=== PATIENT | female | born 1960 | race Caucasian/White ===

== ENCOUNTER 2019-12-01 12:04 | Observation (INO) | payer MEDICAID ==
[2019-12-01] MEDS ORDERED: Sodium Chloride 0.9% 10 ML Syringe FLUSH PRN (12:20)
[2019-12-01] MEDS ORDERED: Sodium Chloride 0.9% 2.5 ML Syringe FLUSH PRN (12:20)
[2019-12-01] MEDS ORDERED: Ondansetron 4 MG/2 ML SDV IVPUSH ONE ×2 (12:21→13:06)
[2019-12-01] MEDS ORDERED: fentaNYL 50 MCG/ML SDV IVPUSH ONE ×2 (12:21→14:27)
[2019-12-01] MEDS ORDERED: Aspirin 325 MG Tab PO ONE (12:21)
--- NOTE | 2019-12-01 12:28 | EDM.PDOC ---
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 Patient reports a sudden onset of substernal chest pain around 10:30 PM last night while at rest. Pain radiates to the left shoulder and the thoracic back. Nothing makes it better or worse. Described as "dull" and rated as 10 out of 10. She took some antacid medication at home which did not help. Did not take any aspirin. She reports nausea but no emesis, also reports diaphoresis. She reports faithful compliance with her rivaroxaban medication. Denies any hemoptysis, recent surgery or travel or immobilization, history of active cancer, or estrogen or hormone use. ROS: A 10-point review of systems was negative, except as noted in the HPI (or in the ROS section of this note). Past medical history: Reviewed, no additional pertinent history. Surgical history: Reviewed in system, no additional pertinent history. Social history: Reviewed in system, no additional pertinent history. Family history: Reviewed in system, no additional pertinent history. PHYSICAL EXAM Vital signs reviewed. Nursing notes reviewed. Constitutional: Awake, alert, appears uncomfortable. Head: Normocephalic, atraumatic. Eyes: EOMI, conjunctiva normal, no discharge, no scleral icterus. Ears, Nose, Throat: External ears and nose normal, moist oral mucosa. Cardiovascular: 2+ radial pulses bilaterally, 2+ DP pulses bilaterally, capillary refill less than 2 seconds. All 4 extremities are warm and well- perfused. Pulmonary: normal work of breathing, no accessory muscle use. CTA BL. Abdomen/GI: Soft, nontender, nondistended, no guarding or rigidity, no masses. Musculoskeletal: No deformities. Integumentary: Appropriate color for ethnicity, warm, dry, no pallor or jaundice, no rash. Neurologic: Alert, answering questions appropriately, normal speech, no facial droop, moving all extremities well. Psychiatric: Appropriate mood and affect, normal thought process. chest pain Pain Score (Numeric/FACES): 6 - Related Data Allergies Allergy/AdvReac Type Severity Reaction Status Date / Time adhesive Allergy Rash Verified 12/01/19 12:28 meperidine [From Demerol] Allergy Hives Verified 12/01/19 12:28 midazolam [From Versed] Allergy Other Verified 12/01/19 12:28 mushroom Allergy Anaphylactic Verified 12/01/19 12:28 Shock steroids Allergy Hallucinati Uncoded 12/01/19 12:28 ons Home Meds: Home Meds ClonazePAM [KlonoPIN] 1 mg PO TID 12/01/19 [History] EPINEPHrine [Epipen 2-Maykel] 0.3 ml IM ASDIRECTED 12/01/19 [History] Gabapentin [Neurontin] 600 mg PO TID 12/01/19 [History] Morphine 15 mg PO Q4HR 12/01/19 [History] Morphine Sulfate [Morphine Sulfate ER] 30 mg PO BID 12/01/19 [History] Omeprazole Magnesium [Prilosec Otc] 20 mg PO DAILY 12/01/19 [History] Rivaroxaban [Xarelto] 20 mg PO BEDTIME 12/01/19 [History] Topiramate [Topamax] 100 mg PO BID 12/01/19 [History] tiZANidine [Zanaflex] 4 mg PO TID 12/01/19 [History] traZODone HCl [Trazodone HCl] 150 mg PO BEDTIME 12/01/19 [History] Past Medical History Cardiovascular History: Reports: CAD Immunologic History: Reports: SLE - Past Surgical History Other Cardiovascular Surgeries/Procedures: Status post renal artery stent, status post IVC filter placement Musculoskeletal Surgical History: Reports: ORIF Other Musculoskeletal Surgeries/Procedures:: ORIF left lower extremity ED ROS GENERAL - Review of Systems Review Of Systems: See Below ED EXAM, GENERAL - Physical Exam Exam: See Below EKG INTERPRETATION EKG Interpretation Comments: 12-Lead ECG Interpretation Acquired: 12:10 PM Rhythm: Sinus rhythm Rate: 84 bpm [place]: Normal Intervals: Normal Ectopy: None Ischemic Changes: QS complexes in leads III and aVF RV Strain: No obvious RV strain pattern. ST Segments/T-Waves: No notable changes Interpretation: Abnormal ECG, QS complexes noted inferior leads. No prior ECG on file for comparison. Course - Vital Signs Text/Narrative:: Differential diagnosis includes but is not limited to: ACS, pulmonary embolism, aortic dissection, acute systolic heart failure, pneumonia, pneumothorax, pericardial effusion, pleural effusion, pericarditis, endocarditis, esophageal rupture, GERD, drug-induced chest pain, chest wall pain, and many others. Given presenting symptoms, there was concern for thoracic aortic dissection. IV access was established and labs were sent. We obtained a twelve-lead EKG, which shows no acute ischemia. Patient was given full dose aspirin and IV fentanyl and ondansetron. CT angiographic studies of the aorta showed no evidence of aortic dissection or large pulmonary embolism. Labs returned reassuring. Normal cell lines, normal electrolytes. Mild creatinine elevation. Negative troponin with greater than 12 hours of continuous chest pain. HEART score is 5. CRP is mildly elevated at 1.20 but ESR is within normal limits, which argues against a spinal epidural abscess. The patient did experience some transient hypotension which I believe is in response to IV opioid medications. She was given several boluses of crystalloid with improvement of her blood pressure. She required multiple rounds of IV opioids including fentanyl and hydromorphone but continued to have severe midline thoracic back pain. Neurologic examination is difficult as the patient will not fully mobilize her left lower extremity due to severe back pain. She denies any numbness and also denies any bowel or bladder retention or incontinence. She does not have any overt risk factors at this point for a spinal compressive lesion. At this point I have a low suspicion for a compressive process including a spinal epidural abscess, tumor, or spinal hematoma. We obtained CT reconstructions of the thoracic and lumbar spine, with no acute findings and no evidence of a compressive lesion. Given the amount of pain the patient has in her IV opioid pain dedication requirements, she will need to be admitted to the hospital for ongoing symptom control, physical therapy evaluation, and consideration of MRI. I spoke with the hospitalist Dr. Carlson who agrees to admit to observation. HEART Score for Major Cardiac Events RESULT SUMMARY: 5 points Moderate Score (4-6 points) Risk of MACE of 12-16.6%. INPUTS: History > 2 = Highly suspicious EKG > 0 = Normal Age > 1 = 45-64 Risk factors > 2 = ?3 risk factors or history of atherosclerotic disease Initial troponin > 0 = ?normal limit Last Recorded V/S: Last Vital Signs Temp 36.4 C 12/01/19 12:14 Pulse 66 12/01/19 16:18 Resp 14 12/01/19 16:18 BP 90/57 L 12/01/19 16:18 Pulse Ox 99 12/01/19 16:18 - Orders/Labs/Meds Orders: Active Orders 24 hr Category Date Time Status Admission Status [Patient Status] [ADT] Stat ADT 12/01/19 16:41 Active Cardiac Monitoring [RC] . DIRECTED Care 12/01/19 12:20 Active EKG Documentation Completion [RC] STAT Care 12/01/19 12:20 Active Pulse Oximetry [RC] ASDIRECTED Care 12/01/19 12:20 Active Ang Chest [CT] Stat Exams 12/01/19 12:20 Taken Sodium Chloride 0.9% [Saline Flush] Med 12/01/19 12:20 Active 10 ml FLUSH ASDIRECTED PRN Sodium Chloride 0.9% [Saline Flush] Med 12/01/19 12:20 Active 2.5 ml FLUSH ASDIRECTED PRN Saline Lock Insert [OM.PC] Stat Oth 12/01/19 12:20 Ordered Medication Orders Sodium Chloride (Saline Flush) 10 ml FLUSH ASDIRECTED PRN PRN Reason: Keep Vein Open Last Admin: 12/01/19 12:29 Dose: 10 ml Documented by: NICOLE Sodium Chloride (Saline Flush) 2.5 ml FLUSH ASDIRECTED PRN PRN Reason: Keep Vein Open Last Admin: 12/01/19 12:29 Dose: 2.5 ml Documented by: NICOLE Labs: Laboratory Tests 12/01/19 12/01/19 12/01/19 Range/Units 12:17 12:17 12:17 WBC 7.11 (4.0-11.0) K/uL RBC 5.07 (4.30-5.90) M/uL Hgb 15.4 (12.0-16.0) g/dL Hct 45.5 (36.0-46.0) % MCV 89.7 (80.0-98.0) fL MCH 30.4 (27.0-32.0) pg MCHC 33.8 (31.0-37.0) g/dL RDW Std Deviation 42.3 (28.0-62.0) fl RDW Coeff of Peewee 13 (11.0-15.0) % Plt Count 169 (150-400) K/uL MPV 9.60 (7.40-12.00) fL Neut % (Auto) 43.7 L (48.0-80.0) % Lymph % (Auto) 43.7 H (16.0-40.0) % [place] % (Auto) 6.2 (0.0-15.0) % Eos % (Auto) 6.0 (0.0-7.0) % Baso % (Auto) 0.4 (0.0-1.5) % Neut # (Auto) 3.1 (1.4-5.7) K/uL Lymph # (Auto) 3.1 H (0.6-2.4) K/uL [place] # (Auto) 0.4 (0.0-0.8) K/uL Eos # (Auto) 0.4 (0.0-0.7) K/uL Baso # (Auto) 0.0 (0.0-0.1) K/uL ESR 2 (0-29) mm/hr Sodium 138 (136-145) mmol/L Potassium 4.0 (3.5-5.1) mmol/L Chloride 104 (98-107) mmol/L Carbon Dioxide 26.8 (21.0-32.0) mmol/L BUN 12 (7.0-18.0) mg/dL Creatinine 1.1 H (0.6-1.0) mg/dL Est Cr Clr Drug Dosing 44.45 mL/min Estimated GFR (MDRD) 51.2 ml/min Glucose 94 (74-106) mg/dL Calcium 8.7 (8.5-10.1) mg/dL Total Bilirubin 0.1 L (0.2-1.0) mg/dL AST 14 L (15-37) IU/L ALT 13 L (14-63) IU/L Alkaline Phosphatase 99 (46-116) U/L Troponin I < 0.050 (0.000-0.056) ng/mL C-Reactive Protein (0.00-0.90) mg/dL Total Protein 7.5 (6.4-8.2) g/dL Albumin 3.8 (3.4-5.0) g/dL Globulin 3.7 (2.6-4.0) g/dL Albumin/Globulin Ratio 1.0 (0.9-1.6) COVID-19 ([facility]) (NEGATIVE) 12/01/19 12/01/19 Range/Units 12:17 15:20 WBC (4.0-11.0) K/uL RBC (4.30-5.90) M/uL Hgb (12.0-16.0) g/dL Hct (36.0-46.0) % MCV (80.0-98.0) fL MCH (27.0-32.0) pg MCHC (31.0-37.0) g/dL RDW Std Deviation (28.0-62.0) fl RDW Coeff of [place]ee[place] (11.0-15.0) % Plt Count (150-400) K/uL MPV (7.40-12.00) fL Neut % (Auto) (48.0-80.0) % Lymph % (Auto) (16.0-40.0) % [place] % (Auto) (0.0-15.0) % Eos % (Auto) (0.0-7.0) % Baso % (Auto) (0.0-1.5) % Neut # (Auto) (1.4-5.7) K/uL Lymph # (Auto) (0.6-2.4) K/uL [place] # (Auto) (0.0-0.8) K/uL Eos # (Auto) (0.0-0.7) K/uL Baso # (Auto) (0.0-0.1) K/uL ESR (0-29) mm/hr Sodium (136-145) mmol/L Potassium (3.5-5.1) mmol/L Chloride (98-107) mmol/L Carbon Dioxide (21.0-32.0) mmol/L BUN (7.0-18.0) mg/dL Creatinine (0.6-1.0) mg/dL Est Cr Clr Drug Dosing mL/min Estimated GFR (MDRD) ml/min Glucose (74-106) mg/dL Calcium (8.5-10.1) mg/dL Total Bilirubin (0.2-1.0) mg/dL AST (15-37) IU/L ALT (14-63) IU/L Alkaline Phosphatase (46-116) U/L Troponin I (0.000-0.056) ng/mL C-Reactive Protein 1.20 H (0.00-0.90) mg/dL Total Protein (6.4-8.2) g/dL Albumin (3.4-5.0) g/dL Globulin (2.6-4.0) g/dL Albumin/Globulin Ratio (0.9-1.6) COVID-19 ([facility]) NEGATIVE (NEGATIVE) Meds: Medications Generic Name Dose Route Start Last Admin Trade Name Juanis PRN Reason Stop Dose Admin Sodium Chloride 10 ml 12/01/19 12:20 12/01/19 12:29 Saline Flush FLUSH 10 ml ASDIRECTED PRN Administration Keep Vein Open Sodium Chloride 2.5 ml 12/01/19 12:20 12/01/19 12:29 Saline Flush FLUSH 2.5 ml ASDIRECTED PRN Administration Keep Vein Open Discontinued Medications Generic Name Dose Route Start Last Admin Trade Name Frealessia PRN Reason Stop Dose Admin Aspirin 325 mg 12/01/19 12:21 12/01/19 12:31 Aspirin PO 12/01/19 12:22 325 mg ONETIME ONE Administration Fentanyl 50 mcg 12/01/19 12:21 12/01/19 12:28 Fentanyl IVPUSH 12/01/19 12:22 50 mcg ONETIME ONE Administration Fentanyl 50 mcg 12/01/19 14:27 12/01/19 14:47 Fentanyl IVPUSH 12/01/19 14:28 50 mcg ONETIME ONE Administration Hydromorphone HCl 1 mg 12/01/19 13:06 12/01/19 13:15 Dilaudid IVPUSH 12/01/19 13:07 1 mg ONETIME ONE Administration Lactated Ringer's 1,000 mls @ 999 mls/hr 12/01/19 13:36 12/01/19 13:38 Ringers, Lactated IV 12/01/19 14:36 999 mls/hr STAT STA Administration Sodium Chloride 1,000 mls @ 999 mls/hr 12/01/19 15:06 12/01/19 15:13 Normal Saline IV 12/01/19 16:06 999 mls/hr STAT STA Administration Iopamidol 100 ml 12/01/19 13:11 12/01/19 13:11 Isovue Multipack-370 (76%) IVPUSH 12/01/19 13:12 100 ml ONETIME ONE Administration Ondansetron HCl 4 mg 12/01/19 12:21 12/01/19 12:28 Zofran IVPUSH 12/01/19 12:22 4 mg ONETIME ONE Administration Ondansetron HCl 4 mg 12/01/19 13:06 12/01/19 13:13 Zofran IVPUSH 12/01/19 13:07 4 mg ONETIME ONE Administration Departure - Departure Time of Disposition: 15:43 Disposition: Refer to Observation Condition: Good Clinical Impression: Midline thoracic back pain Qualifiers: Chronicity: acute Qualified Code(s): M54.6 - Pain in thoracic spine Referrals: Miguel Angel Hall MD [Primary Care Provider] - Forms: ED Department Discharge Sepsis Event Note (ED) - Evaluation Sepsis Screening Result: No Definite Risk - Focused Exam Vital Signs: Vital Signs Temp Pulse Resp BP Pulse Ox 12/01/19 16:18 66 14 90/57 L 99 12/01/19 15:14 74 14 87/47 L 91 L 12/01/19 14:43 14 102/56 L 95 12/01/19 14:19 71 16 92/61 99 12/01/19 14:04 76 14 88/56 L 93 L 12/01/19 13:35 79 18 86/52 L 96 12/01/19 12:14 36.4 C 87 17 108/78 96 - My Orders Last 24 Hours: My Active Orders 12/01/19 12:20 Cardiac Monitoring [RC] . DIRECTED EKG Documentation Completion [RC] STAT Pulse Oximetry [RC] ASDIRECTED Ang Chest [CT] Stat Sodium Chloride 0.9% [Saline Flush] 10 ml FLUSH ASDIRECTED PRN Sodium Chloride 0.9% [Saline Flush] 2.5 ml FLUSH ASDIRECTED PRN Saline Lock Insert [OM.PC] Stat 12/01/19 16:41 Admission Status [Patient Status] [ADT] Stat - Assessment/Plan Last 24 Hours: My Active Orders 12/01/19 12:20 Cardiac Monitoring [RC] . DIRECTED EKG Documentation Completion [RC] STAT Pulse Oximetry [RC] ASDIRECTED Ang Chest [CT] Stat Sodium Chloride 0.9% [Saline Flush] 10 ml FLUSH ASDIRECTED PRN Sodium Chloride 0.9% [Saline Flush] 2.5 ml FLUSH ASDIRECTED PRN Saline Lock Insert [OM.PC] Stat 12/01/19 16:41 Admission Status [Patient Status] [ADT] Stat
[2019-12-01 12:48] LABS: BLOOD UREA NITROGEN,BUN 12 mg/dL (7.0-18.0); CARBON DIOXIDE,CO2 26.8 mmol/L (21.0-32.0); CHLORIDE,CL 104 mmol/L (98-107); GLUCOSE RANDOM 94 mg/dL (74-106); SODIUM,NA 138 mmol/L (136-145)
[2019-12-01] MEDS ORDERED: HYDROmorphone 1 MG/ML Syringe IVPUSH ONE (13:06)
[2019-12-01] MEDS ORDERED: Iopamidol 755 MG/ML 200 ML Multipack Bottle IVPUSH ONE (13:11)
[2019-12-01] MEDS ORDERED: Lactated Ringers 1,000 ML IV STA (13:36)
[2019-12-01] MEDS ORDERED: Sodium Chloride 0.9% 1,000 ML IV STA (15:06)
--- NOTE | 2019-12-01 15:12 | CT ---
Head CT Technique: Multiple axial sections through the brain were obtained. Intravenous contrast was not utilized. Contrast is noted from prior chest and abdomen CT. Comparison: No prior intracranial imaging is available. Findings: Ventricles along with basal cisterns and sulci over the convexities are within normal limits for the patient's age. No abnormal parenchymal densities are seen. No midline shift or mass effect is appreciated. Bone window settings were reviewed. No acute calvarial finding is seen. Visualized mastoid sinuses are clear. Visualized paranasal sinuses are also clear. Impression: 1. No abnormality is appreciated on head CT study. Diagnostic code #1 This report was dictated in MDT
--- NOTE | 2019-12-01 16:21 | CT ---
CT thoracic spine Technique: Multiple axial sections through the thoracic spine were obtained. Reconstructed coronal and sagittal images were obtained. Comparison: No prior thoracic spine imaging is available. Findings: Diffuse disc space narrowing throughout the thoracic spine in the lower cervical spine is seen. Diffuse anterior osteophytes are seen. Slight posterior osteophytes are noted which are scattered throughout the thoracic spine. No bony central canal stenosis is seen. Mild scoliosis is seen. Mild scattered degenerative apophyseal change is also noted. No fracture is appreciated. No abnormal subluxation is seen. Impression: 1. Diffuse degenerative change as described above. 2. Nothing acute is appreciated on CT study of the thoracic spine. Note: If evaluation for disc herniation is needed, MRI could then be considered. Diagnostic code #2 This report was dictated in MDT
--- NOTE | 2019-12-01 16:37 | CT ---
CT lumbar spine Technique: Multiple axial sections were obtained from above the T10-T11 disc through the L5-S1 disc. Reconstructed coronal and sagittal images were obtained. Comparison: No prior lumbar spine imaging. Findings: Severe disc space narrowing with vacuum phenomena is noted T10-T11, T11-T12 and L5-S1. Mild disc space narrowing is seen throughout other levels of the lumbar spine. Scattered anterior endplate osteophytes are seen as well as scattered apophyseal joint degenerative change. Circumferential disc bulge noted at L2-3 with posterior disc maintaining a concave margin. Minimal circumferential disc bulge at L3-L4 with posterior disc maintaining a concave margin. Slight posterior disc bulge and posterior spurring is noted at L4-L5 which causes mild central canal stenosis. Minimal amount of epidural air compatible with annular rupture noted at L5-S1. Minimal posterior disc bulge is seen. Moderate left-sided neural foraminal stenosis is noted at L5-S1. Other neural foramina are felt to be fairly well patent where the nerve roots exit. No acute fracture or abnormal subluxation is seen. Impression: 1. Degenerative change as described above. 2. Left-sided neural foraminal stenosis at L5-S1. 3. Mild central canal stenosis noted at L4-L5. Diagnostic code #3 This report was dictated in MDT
[2019-12-01] MEDS ORDERED: Lactated Ringers 1,000 ML IV ONE (16:48)
[2019-12-01] MEDS ORDERED: Albuterol/Ipratropium 3.0-0.5 MG/3 ML Neb Soln NEB PRN (16:53)
[2019-12-01] MEDS ORDERED: Ondansetron 4 MG/2 ML SDV IVPUSH PRN (16:53)
[2019-12-01] MEDS ORDERED: Acetaminophen/oxyCODONE 325-5 MG Tab PO SCH (17:00)
[2019-12-01] MEDS ORDERED: Lactated Ringers 1,000 ML IV SCH (17:30)
[2019-12-01] MEDS: Morphine 10 MG/ML Syringe IVPUSH PRN (20:46)
--- NOTE | 2019-12-01 22:03 | PCM.HP.2 ---
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 Patient reports a sudden onset of substernal chest pain around 10:30 PM last night while at rest, she states the pain started when she was eating/drinking. Pain radiates to the left shoulder and the thoracic back. She took maalox at home which did not help. Did not take any aspirin. She reports nausea but no emesis, also reports diaphoresis. Denies any hemoptysis, recent surgery or travel or immobilization, history of active cancer, or estrogen or hormone use. CT arotagram was negative for dissection, CT head, and spine showed severe d egenerative changes, Patient received IV fentanyl, her BP was low and she was quite somnolent in ER post fentanyl. She was admitted for observation. During my encounter patient had a sip of cold water and had another episode of the pain which resolved after few minutes. EKG was done which showed NSR, troponin*2 have been negative. Patient states her BP is always soft as low as SBP 70-80 and its "normal for her". She is keen to go back home. chest pain Pain Score (Numeric/FACES): 6 - Related Data Allergies/Adverse Reactions: Allergies Allergy/AdvReac Type Severity Reaction Status Date / Time adhesive Allergy Rash Verified 12/01/19 17:55 meperidine [From Demerol] Allergy Hives Verified 12/01/19 17:55 midazolam [From Versed] Allergy Other Verified 12/01/19 17:55 mushroom Allergy Anaphylactic Verified 12/01/19 17:55 Shock steroids Allergy Hallucinati Uncoded 12/01/19 17:55 ons Home Medications: Home Meds ClonazePAM [KlonoPIN] 1 mg PO TID 12/01/19 [History] EPINEPHrine [Epipen 2-Maykel] 0.3 ml IM ASDIRECTED 12/01/19 [History] Gabapentin [Neurontin] 600 mg PO TID 12/01/19 [History] Morphine 15 mg PO Q4HR 12/01/19 [History] Morphine Sulfate [Morphine Sulfate ER] 30 mg PO BID 12/01/19 [History] Omeprazole Magnesium [Prilosec Otc] 20 mg PO DAILY 12/01/19 [History] Rivaroxaban [Xarelto] 20 mg PO BEDTIME 12/01/19 [History] Topiramate [Topamax] 100 mg PO BID 12/01/19 [History] tiZANidine [Zanaflex] 4 mg PO TID 12/01/19 [History] traZODone HCl [Trazodone HCl] 150 mg PO BEDTIME 12/01/19 [History] Past Medical History Cardiovascular History: Reports: CAD Respiratory History: Reports: COPD, PE Musculoskeletal History: Reports: Arthritis, Back Pain, Chronic, Fibromyalgia, Osteoarthritis, RA Neurological History: Reports: Other (See Below) Other Neuro History: stroke Psychiatric History: Reports: Anxiety, Depression Hematologic History: Reports: Other (See Below) Other Hematologic History: coagulation disorder. hx of DVT's Immunologic History: Reports: SLE Oncologic (Cancer) History: Reports: Cervix - Infectious Disease History Infectious Disease History: Reports: Chicken Pox, Measles - Past Surgical History Other Cardiovascular Surgeries/Procedures: Status post renal artery stent, status post IVC filter placement Musculoskeletal Surgical History: Reports: ORIF Other Musculoskeletal Surgeries/Procedures:: ORIF left lower extremity Social & Family History - Family History Family Medical History: Noncontributory - Tobacco Use Smoking Status *Q: Current Every Day Smoker Years of Tobacco use: 50 Packs/Tins Daily: 1 Tobacco Use Comment: unable to obtain - Caffeine Use Caffeine Use: Reports: Coffee Caffeine Use Comment: unable to obtain - Recreational Drug Use Recreational Drug Use: No H&P Review of Systems - Review of Systems: Review Of Systems: See Below General: Denies: Fever, Chills, Malaise HEENT: Denies: Dysphasia, Ear Pain Pulmonary: Reports: Shortness of Breath. Denies: Wheezing, Pleuritic Chest Pain Cardiovascular: Reports: Chest Pain. Denies: Palpitations, Dyspnea on Exertion, Orthopnea, Lightheadedness, Syncope Gastrointestinal: Reports: Nausea. Denies: Abdominal Pain, Anorexia, Black Stool, Bloody Stool, Melena, Mucous in Stool, Vomiting Genitourinary: Denies: Burning, Pain, Urgency Musculoskeletal: Denies: Shoulder Pain, Arm Pain Skin: Denies: Jaundice, Mottled, Pallor Psychiatric: Denies: Confusion, Agitation, Cravings, Hallucinations (Visual) Neurological: Reports: Numbness, Pre-Existing Deficit, Tingling (chronic) Exam - Exam Exam: See Below - Vital Signs Vital Signs: Last Vital Signs Temp 36.4 C 12/01/19 17:23 Pulse 65 12/01/19 17:23 Resp 14 12/01/19 17:23 BP 97/53 L 12/01/19 17: Pulse Ox 100 12/01/19 17:25 Weight: 49.895 kg - Exam Quality Assessment: Supplemental Oxygen General: Alert, Oriented Neck: Supple, Trachea Midline Lungs: Clear to Auscultation, Normal Respiratory Effort Cardiovascular: Regular Rate, Regular Rhythm GI/Abdominal Exam: Normal Bowel Sounds, Soft, Tender (epigastric) Skin: Warm Neurological: Cranial Nerves Intact, Normal Speech, Normal Tone, Sensation Intact Neuro Extensive - Motor, Sensory, Reflexes: CN II-XII Intact - Patient Data Lab Results Last 24 hrs: Laboratory Results - last 24 hr 12/01/19 12/01/19 12/01/19 Range/Units 12:17 12:17 12:17 WBC 7.11 (4.0-11.0) K/uL RBC 5.07 (4.30-5.90) M/uL Hgb 15.4 (12.0-16.0) g/dL Hct 45.5 (36.0-46.0) % MCV 89.7 (80.0-98.0) fL MCH 30.4 (27.0-32.0) pg MCHC 33.8 (31.0-37.0) g/dL RDW Std Deviation 42.3 (28.0-62.0) fl RDW Coeff of Peewee 13 (11.0-15.0) % Plt Count 169 (150-400) K/uL MPV 9.60 (7.40-12.00) fL Neut % (Auto) 43.7 L (48.0-80.0) % Lymph % (Auto) 43.7 H (16.0-40.0) % Grundy % (Auto) 6.2 (0.0-15.0) % Eos % (Auto) 6.0 (0.0-7.0) % Baso % (Auto) 0.4 (0.0-1.5) % Neut # (Auto) 3.1 (1.4-5.7) K/uL Lymph # (Auto) 3.1 H (0.6-2.4) K/uL Grundy # (Auto) 0.4 (0.0-0.8) K/uL Eos # (Auto) 0.4 (0.0-0.7) K/uL Baso # (Auto) 0.0 (0.0-0.1) K/uL ESR 2 (0-29) mm/hr Sodium 138 (136-145) mmol/L Potassium 4.0 (3.5-5.1) mmol/L Chloride 104 (98-107) mmol/L Carbon Dioxide 26.8 (21.0-32.0) mmol/L BUN 12 (7.0-18.0) mg/dL Creatinine 1.1 H (0.6-1.0) mg/dL Est Cr Clr Drug Dosing 44.45 mL/min Estimated GFR (MDRD) 51.2 ml/min Glucose 94 (74-106) mg/dL Calcium 8.7 (8.5-10.1) mg/dL Total Bilirubin 0.1 L (0.2-1.0) mg/dL AST 14 L (15-37) IU/L ALT 13 L (14-63) IU/L Alkaline Phosphatase 99 (46-116) U/L Troponin I < 0.050 (0.000-0.056) ng/mL C-Reactive Protein (0.00-0.90) mg/dL Total Protein 7.5 (6.4-8.2) g/dL Albumin 3.8 (3.4-5.0) g/dL Globulin 3.7 (2.6-4.0) g/dL Albumin/Globulin Ratio 1.0 (0.9-1.6) COVID-19 (LAINE) (NEGATIVE) 12/01/19 12/01/19 12/01/19 Range/Units 12:17 15:20 20:41 WBC (4.0-11.0) K/uL RBC (4.30-5.90) M/uL Hgb (12.0-16.0) g/dL Hct (36.0-46.0) % MCV (80.0-98.0) fL MCH (27.0-32.0) pg MCHC (31.0-37.0) g/dL RDW Std Deviation (28.0-62.0) fl RDW Coeff of Peewee (11.0-15.0) % Plt Count (150-400) K/uL MPV (7.40-12.00) fL Neut % (Auto) (48.0-80.0) % Lymph % (Auto) (16.0-40.0) % Grundy % (Auto) (0.0-15.0) % Eos % (Auto) (0.0-7.0) % Baso % (Auto) (0.0-1.5) % Neut # (Auto) (1.4-5.7) K/uL Lymph # (Auto) (0.6-2.4) K/uL Grundy # (Auto) (0.0-0.8) K/uL Eos # (Auto) (0.0-0.7) K/uL Baso # (Auto) (0.0-0.1) K/uL ESR (0-29) mm/hr Sodium (136-145) mmol/L Potassium (3.5-5.1) mmol/L Chloride (98-107) mmol/L Carbon Dioxide (21.0-32.0) mmol/L BUN (7.0-18.0) mg/dL Creatinine (0.6-1.0) mg/dL Est Cr Clr Drug Dosing mL/min Estimated GFR (MDRD) ml/min Glucose (74-106) mg/dL Calcium (8.5-10.1) mg/dL Total Bilirubin (0.2-1.0) mg/dL AST (15-37) IU/L ALT (14-63) IU/L Alkaline Phosphatase (46-116) U/L Troponin I < 0.050 (0.000-0.056) ng/mL C-Reactive Protein 1.20 H (0.00-0.90) mg/dL Total Protein (6.4-8.2) g/dL Albumin (3.4-5.0) g/dL Globulin (2.6-4.0) g/dL Albumin/Globulin Ratio (0.9-1.6) COVID-19 (LAINE) NEGATIVE (NEGATIVE) Result Diagrams: 12/01/19 12:17 12/01/19 12:17 Sepsis Event Note - Evaluation Sepsis Screening Result: No Definite Risk - Focused Exam Vital Signs: Vital Signs Temp Pulse Resp BP Pulse Ox Pulse Ox 12/01/19 17:25 100 12/01/19 17:23 36.4 C 65 14 97/53 L 100 12/01/19 16:46 65 14 88/55 L 98 12/01/19 16:18 66 14 90/57 L 99 12/01/19 15:14 74 14 87/47 L 91 L 12/01/19 14:43 14 102/56 L 95 12/01/19 14:19 71 16 92/61 99 12/01/19 14:04 76 14 88/56 L 93 L 12/01/19 13:35 79 18 86/52 L 96 12/01/19 12:14 36.4 C 87 17 108/78 96 Date Exam was Performed: 12/01/19 Time Exam was Performed: 23:58 - Problem List (1) Chest pain SNOMED Code(s): 39650523 ICD Code: R07.9 - CHEST PAIN, UNSPECIFIED Status: Acute Current Visit: Yes (2) Chronic pain SNOMED Code(s): 84925428 ICD Code: G89.29 - OTHER CHRONIC PAIN Status: Acute Current Visit: Yes (3) Chronic leg pain SNOMED Code(s): 65792441 ICD Code: M79.606 - PAIN IN LEG, UNSPECIFIED; G89.29 - OTHER CHRONIC PAIN Status: Acute Current Visit: Yes (4) Midline thoracic back pain SNOMED Code(s): 686250650 ICD Code: M54.6 - PAIN IN THORACIC SPINE Status: Acute Current Visit: Yes Qualifiers: Chronicity: acute Qualified Code(s): M54.6 - Pain in thoracic spine Problem List Initiated/Reviewed/Updated: Yes Orders Last 24hrs: Active Orders 24 hr Category Date Time Status Admission Status [Patient Status] [ADT] Stat ADT 12/01/19 16:41 Active Ambulate [RC] ASDIRECTED Care 12/01/19 16:48 Active Antiembolic Devices [RC] PER UNIT ROUTINE Care 12/01/19 16:51 Active Cardiac Monitoring [RC] . DIRECTED Care 12/01/19 12:20 Active Oxygen Therapy [RC] PRN Care 12/01/19 16:48 Active Pulse Oximetry [RC] ASDIRECTED Care 12/01/19 12:20 Active RT Aerosol Therapy [RC] ASDIRECTED Care 12/01/19 16:54 Active Telemetry Monitoring [Cardiac Monitoring] [RC] Q8H Care 12/01/19 17:05 Active VTE/DVT Education [RC] DAILY Care 12/01/19 16:48 Active Vital Signs [RC] Q4H Care 12/01/19 16:48 Active Consult to Physical Therapy [PT Evaluation and Cons 12/01/19 20:29 Active Treatment] [CONS] Routine Clear Liquid Diet [DIET] Diet 12/01/19 Dinner Active Regular Diet [DIET] Diet 12/02/19 Breakfast Active Ang Chest [CT] Stat Exams 12/01/19 12:20 Taken TROPONIN I [CHEM] Q3H Lab 12/01/19 23:28 Ordered Acetaminophen/oxyCODONE [Percocet 325-5 MG] Med 12/01/19 17:00 Active 1 tab PO Q6H Albuterol/Ipratropium [DuoNeb 3.0-0.5 MG/3 ML] Med 12/01/19 16:53 Active 3 ml NEB Q4HRRT PRN Lactated Ringers [Ringers, Lactated] 1,000 ml Med 12/01/19 17:30 Active IV ASDIRECTED Morphine Med 12/01/19 20:00 Active 2 mg IVPUSH Q4H PRN Ondansetron [Zofran] Med 12/01/19 16:53 Active 4 mg IVPUSH Q4H PRN Sodium Chloride 0.9% [Saline Flush] Med 12/01/19 12:20 Active 10 ml FLUSH ASDIRECTED PRN Sodium Chloride 0.9% [Saline Flush] Med 12/01/19 12:20 Active 2.5 ml FLUSH ASDIRECTED PRN Saline Lock Insert [OM.PC] Stat Oth 12/01/19 12:20 Ordered Sequential Compression Device [OM.PC] Per Unit Routine Oth 12/01/19 16:50 Ordered Medication Orders Albuterol/Ipratropium (Duoneb 3.0-0.5 Mg/3 Ml) 3 ml NEB Q4HRRT PRN PRN Reason: Shortness Of Breath/wheezing Lactated Ringer's (Ringers, Lactated) 1,000 mls @ 125 mls/hr IV ASDIRECTED [facility] Last Admin: 12/01/19 18:57 Dose: 125 mls/hr Documented by: ARISTEO Morphine Sulfate (Morphine) 2 mg IVPUSH Q4H PRN PRN Reason: Pain (severe 7-10) Stop: 12/04/19 16:53 Last Admin: 12/01/19 20:46 Dose: 2 mg Documented by: SHIRLEY Ondansetron HCl (Zofran) 4 mg IVPUSH Q4H PRN PRN Reason: Nausea/Vomiting Oxycodone/Acetaminophen (Percocet 325-5 Mg) 1 tab PO Q6H [facility] Last Admin: 12/01/19 17:49 Dose: Not Given Documented by: JACLYN Sodium Chloride (Saline Flush) 10 ml FLUSH ASDIRECTED PRN PRN Reason: Keep Vein Open Last Admin: 12/01/19 12:29 Dose: 10 ml Documented by: NICOLE Sodium Chloride (Saline Flush) 2.5 ml FLUSH ASDIRECTED PRN PRN Reason: Keep Vein Open Last Admin: 12/01/19 12:29 Dose: 2.5 ml Documented by: NICOLE Assessment/Plan Comment:: 59 y/o F admitted for chest pain, radiating to back, Dissection ruled out, EKG noted cont tele trend troponin Pain looks be esophageal vs gastric in origin, it got worse upon drinking water IV PPI and IV Benadryl now one time cont home meds, hold other pain meds tonight IV fluids start IV morphine as needed tonight, will switched to her home meds in AM PT evaluation for frequent falls
[2019-12-01] MEDS ORDERED: Rivaroxaban 10 MG Tab PO SCH (22:09)
[2019-12-01] MEDS ORDERED: diphenhydrAMINE 50 MG/ML SDV IVPUSH ONE (22:41)
[2019-12-01] MEDS ORDERED: Pantoprazole 40 MG in Sodium Chloride 0.9% 10 ML IV ONE (22:43)
[2019-12-01] MEDS ORDERED: Aluminum Hydroxide/Magnesium Hydroxide/Simethicone Susp 30 ML Cup PO PRN (22:50)
[2019-12-02] MEDS: Morphine 10 MG/ML Syringe IVPUSH PRN (01:20)
[2019-12-02] MEDS ORDERED: tiZANidine 4 MG Tab PO SCH ×2 (02:30→06:00)
[2019-12-02] MEDS ORDERED: ClonazePAM 1 MG Tab PO SCH ×2 (02:30→06:00)
[2019-12-02] MEDS ORDERED: Omeprazole 20 MG Cap.CR PO SCH (07:30)
[2019-12-02] MEDS ORDERED: Topiramate 100 MG Tab PO SCH (09:00)
--- NOTE | 2019-12-02 09:45 | CT ---
EXAM DATE: 12/01/19 PATIENT'S AGE: 59 CT chest and abdomen Technique: Multiple axial sections were obtained from above the lung apices inferiorly through the chest and abdomen to below the iliac crest. Intravenous contrast was utilized. Study has been performed as an aortogram exam. Reconstructed coronal and sagittal images were reviewed. Comparison: No prior chest or abdominal CT exam. Findings: Thoracic aorta is well opacified. No evidence of dissection is noted. Visualized pulmonary arteries show no filling defects to indicate larger pulmonary embolism. Mediastinum and hilar regions show no adenopathy or mass. Axillary regions show no adenopathy. Slight scattered areas of increased density within the right chest most likely representing scattered areas of scarring. I see nothing to indicate an acute parenchymal process. Bone window settings of the chest show diffuse degenerative change throughout the visualized lower cervical spine and thoracic spine. No acute abnormality is appreciated within the visualized osseous structures. Liver shows no focal abnormality. Spleen appears within normal limits. Adrenal glands show no nodule. Pancreas shows no discrete abnormality. Kidneys show symmetric contrast enhancement without hydronephrosis. No discrete mass is appreciated. No retroperitoneal adenopathy is seen. Inferior vena cava filter is seen. No mesenteric abnormalities are seen. Aorta shows atherosclerotic change. No aneurysm is seen. No dissection is seen. Both renal arteries show no focal stenosis. Celiac artery and mesenteric artery show no stenosis. Bone window settings of the abdomen were reviewed. Mild degenerative change is noted within the spine most severe at L5-S1. Impression: 1. No evidence of thoracic or abdominal aortic aneurysm or dissection. Atherosclerotic change is seen within the abdominal aorta. 2. Scattered areas of scarring are felt to be present within the right lung. 3. Nothing acute is seen within the chest. 4. Nothing acute is seen within the abdomen. Diagnostic code #2 This report was dictated in MDT Report Signed by Proxy. [facility]
[2019-12-02] MEDS ORDERED: Non-Formulary Medication 1 Each (Rivaroxaban [Xarelto] 20 MG) PO SCH (21:00)
== END 2019-12-02 02:40 | disposition left against medical advice (07) ==
LOC: MW.ED 12:04 → MW.MS 16:41
PROVIDERS: ADMIT Student in an Organized Health Care Education/Training Program; ATTEND Student in an Organized Health Care Education/Training Program
DX: R07.2 Precordial pain (principal); G89.29 Other chronic pain; M79.606 Pain in leg, unspecified; M54.6 Pain in thoracic spine; D68.61 Antiphospholipid syndrome; I25.10 Atherosclerotic heart disease of native coronary artery without angina pectoris; J44.9 Chronic obstructive pulmonary disease, unspecified; F41.9 Anxiety disorder, unspecified; F32.9 Major depressive disorder, single episode, unspecified; M32.9 Systemic lupus erythematosus, unspecified; F17.210 Nicotine dependence, cigarettes, uncomplicated; Z20.828 Contact with and (suspected) exposure to other viral communicable diseases; Z88.5 Allergy status to narcotic agent; Z88.8 Allergy status to other drugs, medicaments and biological substances; Z79.899 Other long term (current) drug therapy; Z86.711 Personal history of pulmonary embolism; Z86.718 Personal history of other venous thrombosis and embolism; Z96.0 Presence of urogenital implants; Z95.828 Presence of other vascular implants and grafts; Z98.890 Other specified postprocedural states
CPT/HCPCS: 36415; 70450; 71275; 72128; 72131; 74175; 80053; 84484; 85025; 85652; 86140; 87635; 93005; 96374; 96375; 96376; 99285; A9270; C9113; G0378; J1170; J1200; J2270; J2405; J3010; J7030; J7050; J7120; Q9967; U0002

== ENCOUNTER 2020-07-11 20:24 | Emergency (ER) | payer MEDICAID ==
--- NOTE | 2020-07-11 21:41 | EDM.PDOC ---
<Shantel Jackson R - Last Filed: 07/11/20 21:34> ED HPI GENERAL MEDICAL PROBLEM - General Chief Complaint: Upper Extremity Injury/Pain Stated Complaint: RT HAND INJURY FROM FALL YESTERDAY Time Seen by Provider: 07/11/20 21:14 Source of Information: Reports: Patient History Limitations: Reports: No Limitations - History of Present Illness INITIAL COMMENTS - FREE TEXT/NARRATIVE: Presents reporting right forearm and shoulder pain. States that last night tangled up in a dog leash, fell backwards onto her buttocks and broke her fall with her outstretched arms. She felt a pop in her right forearm. Since then she has had pain in her right hand and right shoulder. right wrist and hand Pain Score (Numeric/FACES): 5 - Related Data Allergies Allergy/AdvReac Type Severity Reaction Status Date / Time adhesive Allergy Rash Verified 07/11/20 21:24 meperidine [From Demerol] Allergy Hives Verified 07/11/20 21:24 midazolam [From Versed] Allergy Other Verified 07/11/20 21:24 mushroom Allergy Anaphylactic Verified 07/11/20 21:24 Shock steroids Allergy Hallucinati Uncoded 07/11/20 21:24 ons Home Meds: Home Meds ClonazePAM [KlonoPIN] 1 mg PO TID 12/01/19 [History] EPINEPHrine [Epipen 2-Maykel] 0.3 ml IM ASDIRECTED 12/01/19 [History] Gabapentin [Neurontin] 600 mg PO TID 12/01/19 [History] Morphine 15 mg PO Q4HR 12/01/19 [History] Morphine Sulfate [Morphine Sulfate ER] 30 mg PO BID 12/01/19 [History] Omeprazole Magnesium [Prilosec Otc] 20 mg PO DAILY 12/01/19 [History] Rivaroxaban [Xarelto] 20 mg PO BEDTIME 12/01/19 [History] Topiramate [Topamax] 100 mg PO BID 12/01/19 [History] tiZANidine [Zanaflex] 4 mg PO TID 12/01/19 [History] traZODone HCl [Trazodone HCl] 150 mg PO BEDTIME 12/01/19 [History] Vitamins B1,B2,B3,B5,and B6 [B-Complex Injection Vial] 30 ml IJ ASDIRECTED 07/11/20 [History] Past Medical History Cardiovascular History: Reports: CAD Respiratory History: Reports: COPD, PE Musculoskeletal History: Reports: Arthritis, Back Pain, Chronic, Fibromyalgia, Osteoarthritis, RA Neurological History: Reports: Other (See Below) Other Neuro History: stroke Psychiatric History: Reports: Anxiety, Depression Hematologic History: Reports: Other (See Below) Other Hematologic History: coagulation disorder. hx of DVT's Immunologic History: Reports: SLE Oncologic (Cancer) History: Reports: Cervix - Infectious Disease History Infectious Disease History: Reports: Chicken Pox, Measles - Past Surgical History Other Cardiovascular Surgeries/Procedures: Status post renal artery stent, status post IVC filter placement Respiratory Surgical History: Reports: Lung Resection Other Respiratory Surgeries/Procedures: right lung GI Surgical History: Reports: Appendectomy, Cholecystectomy, Colonoscopy, EGD, Hernia, Abdominal Female Surgical History: Reports: Section, Tubal Ligation Other Female Surgeries/Procedures: uteran ablation Musculoskeletal Surgical History: Reports: ORIF Other Musculoskeletal Surgeries/Procedures:: ORIF left lower extremity Social & Family History - Family History Family Medical History: No Pertinent Family History - Tobacco Use Packs/Tins Daily: 1 - Caffeine Use Caffeine Use: Reports: None Caffeine Use Comment: unable to obtain - Recreational Drug Use Recreational Drug Use: Yes Recreational Drug Type: Reports: Marijuana/Hashish ED EXAM, GENERAL - Physical Exam Exam: See Below Exam Limited By: No Limitations General Appearance: Alert, No Apparent Distress Ears: Normal External Exam Nose: Normal Inspection Throat/Mouth: Normal Inspection Head: Atraumatic, Normocephalic Neck: Normal Inspection Respiratory/Chest: No Respiratory Distress, Lungs Clear, Normal Breath Sounds Cardiovascular: Normal Peripheral Pulses, Regular Rate, Rhythm, No Murmur GI/Abdominal: Soft Back Exam: Normal Inspection Extremities: Normal Inspection, Limited Range of Motion (wrist and digits limited by pain. Of note, the patient untied her bath robe and did not complain of pain or have any difficulty with the process.), Other (Right shoulder without deformity, swelling, erythema, ecchymosis. Motion limited by pain to 90 degrees of flexion and 90 degrees of abduction. Right elbow without tenderness erythema, swelling and full range of motion without hesitation or limitation. Right wrist no swelling, deformity, range of ) Neurological: Alert, Oriented Psychiatric: Normal Affect, Normal Mood Skin Exam: Warm, Dry, Intact, Normal Color, No Rash Lymphatic: No Adenopathy Departure - Departure Disposition: Home, Self-Care Clinical Impression: Nondisplaced fracture of right scaphoid bone - Discharge Information Instructions: Wrist Fracture Treated With Immobilization, [id number] Referrals: Miguel Angel Hall MD [Primary Care Provider] - Forms: ED Department Discharge Additional Instructions: [facility] - [facility] [address], [address] [place] [address] The following information is given to patients seen in the emergency department who are being discharged to home. This information is to outline your options for follow-up care. We provide all patients seen in our emergency department with a follow-up referral. The need for follow-up, as well as the timing and circumstances, are variable depending upon the specifics of your emergency department visit. If you don't have a primary care physician on staff, we will provide you with a referral. We always advise you to contact your personal physician following an emergency department visit to inform them of the circumstance of the visit and for follow-up with them and/or the need for any referrals to a consulting specialist. The emergency department will also refer you to a specialist when appropriate. This referral assures that you have the opportunity for follow-up care with a specialist. All of these measure are taken in an effort to provide you with optimal care, which includes your follow-up. Under all circumstances we always encourage you to contact your private physic christina who remains a resource for coordinating your care. When calling for follow- up care, please make the office aware that this follow-up is from your recent emergency room visit. If for any reason you are refused follow-up, please contact the [facility] Emergency Department at and asked to speak to the emergency department charge nurse. Gnosis was made by clinical exam. X-ray did not verify it but scaphoid fracture can be invisible on the x-ray and her exam is convincing. Sepsis Event Note (ED) - Evaluation Sepsis Screening Result: No Definite Risk <Destin Chavez - Last Filed: 07/11/20 23:29> Review of Systems - Review of Systems Review Of Systems: Comprehensive ROS is negative, except as noted in HPI. ED EXAM, GENERAL - Physical Exam Free Text/Narrative:: Physical exam is in the HPI Course - Vital Signs Text/Narrative:: X-rays negative of the wrist and shoulder. Tenderness and swelling is at the anatomic snuffbox of the right wrist. Diagnosis scaphoid fracture by exam Last Recorded V/S: Last Vital Signs Temp 36.4 C 07/11/20 21:16 Pulse 74 07/11/20 21:16 Resp 18 07/11/20 21:16 BP 99/71 07/11/20 21:16 Pulse Ox 94 L 07/11/20 21:16 - Orders/Labs/Meds Orders: Active Orders 24 hr Category Date Time Status Shoulder Comp Rt [CR] Stat Exams 07/11/20 21:56 Taken Wrist Comp Min 3V Rt [CR] Stat Exams 07/11/20 21:55 Taken DME for Discharge [COMM] Stat Oth 07/11/20 23:26 Ordered Departure - Departure Time of Disposition: 23:28 Condition: Good Sepsis Event Note (ED) - Focused Exam Vital Signs: Vital Signs Temp Pulse Resp BP Pulse Ox 07/11/20 21:16 36.4 C 74 18 99/71 94 L - My Orders Last 24 Hours: My Active Orders 07/11/20 21:55 Wrist Comp Min 3V Rt [CR] Stat 07/11/20 21:56 Shoulder Comp Rt [CR] Stat 07/11/20 23:26 DME for Discharge [COMM] Stat - Assessment/Plan Last 24 Hours: My Active Orders 07/11/20 21:55 Wrist Comp Min 3V Rt [CR] Stat 07/11/20 21:56 Shoulder Comp Rt [CR] Stat 07/11/20 23:26 DME for Discharge [COMM] Stat
--- NOTE | 2020-07-11 23:47 | CR ---
INDICATION: Trauma. COMPARISON: None. TECHNIQUE: Three views of the right wrist. FINDINGS: Normal mineralization and alignment. No acute fracture or dislocation. Soft tissues are unremarkable. IMPRESSION: Negative right wrist series. Dictated by James Love MD @ 07/11/2020 11:46:58 PM Dictated by: James Love MD @ 07/11/2020 23:47:05 (Electronically Signed)
--- NOTE | 2020-07-11 23:49 | CR ---
Indication: Injury Technique: Three views of the right shoulder Comparison: None available Findings/Impression: Bones: No acute fracture seen. No dislocation. Joint spaces: Unremarkable. Soft tissues: Unremarkable. Dictated by Daniel Barragan MD @ Jul 11 2020 11:47PM Signed by Dr. Danile Barragan @ Jul 11 2020 11:49PM
== END 2020-07-12 00:10 | disposition home or self-care (01) ==
LOC: MW.ED 20:24
DX: S62.001A Unspecified fracture of navicular [scaphoid] bone of right wrist, initial encounter for closed fracture (principal); I25.10 Atherosclerotic heart disease of native coronary artery without angina pectoris; J44.9 Chronic obstructive pulmonary disease, unspecified; Z86.711 Personal history of pulmonary embolism; Z86.718 Personal history of other venous thrombosis and embolism; Z91.048 Other nonmedicinal substance allergy status; Z88.8 Allergy status to other drugs, medicaments and biological substances; Z91.018 Allergy to other foods; Z88.4 Allergy status to anesthetic agent; Z79.01 Long term (current) use of anticoagulants; Z79.899 Other long term (current) drug therapy; W18.30XA Fall on same level, unspecified, initial encounter; Y93.01 Activity, walking, marching and hiking
CPT/HCPCS: 29125; 73030-26-RT; 73030-RT; 73110-26-RT; 73110-RT; 99283; 99283-25

== ENCOUNTER 2021-12-25 09:35 | Emergency (ER) | payer MEDICAID ==
[2021-12-25] MEDS ORDERED: Sodium Chloride 0.9% 1,000 ML IV ONE (09:51)
[2021-12-25] MEDS ORDERED: Albuterol/Ipratropium 3.0-0.5 MG/3 ML Neb Soln NEB ONE (10:17)
[2021-12-25 10:35] LABS: BLOOD UREA NITROGEN,BUN 18 mg/dL (7.0-18.0); CARBON DIOXIDE,CO2 33.6 mmol/L (21.0-32.0); CHLORIDE,CL 96 mmol/L (98-107); GLUCOSE RANDOM 166 mg/dL (74-106); SODIUM,NA 135 mmol/L (136-145)
[2021-12-25 10:38] LABS: ESTIMATED GFR 43 mL/min (>60)
[2021-12-25] MEDS ORDERED: cefTRIAXone 1 GM in Sodium Chloride 0.9% 50 ML IV ONE (11:11)
[2021-12-25] MEDS ORDERED: Aspirin 81 MG Tab.Chew PO ONE (12:18)
[2021-12-25] MEDS ORDERED: Clopidogrel 75 MG Tab PO ONE (12:19)
== END 2021-12-25 13:21 ==
LOC: MW.ED 09:35
DX: I21.4 Non-ST elevation (NSTEMI) myocardial infarction (principal); J44.9 Chronic obstructive pulmonary disease, unspecified; I25.10 Atherosclerotic heart disease of native coronary artery without angina pectoris; M19.90 Unspecified osteoarthritis, unspecified site; Z79.01 Long term (current) use of anticoagulants; Z20.822 Contact with and (suspected) exposure to COVID-19; Z91.048 Other nonmedicinal substance allergy status; Z91.018 Allergy to other foods; Z88.5 Allergy status to narcotic agent
CPT/HCPCS: 36415; 71045; 80053; 80307; 82803; 84443; 84484; 85025; 87040; 87635; 93005; 94660; 96361; 96374; 99285; A9270; J0696; J7030; J7620-GY; U0002

== ENCOUNTER 2022-05-23 20:40 | Observation (INO) | payer MEDICAID ==
[2022-05-23] MEDS ORDERED: Sodium Chloride 0.9% 10 ML Syringe FLUSH PRN (20:47)
[2022-05-23] MEDS ORDERED: Sodium Chloride 0.9% 2.5 ML Syringe FLUSH PRN (20:47)
[2022-05-23] MEDS ORDERED: Lactated Ringers 1,000 ML IV STA ×2 (20:56→20:59)
[2022-05-23] MEDS ORDERED: Albuterol/Ipratropium 3.0-0.5 MG/3 ML Neb Soln NEB ONE ×3 (20:57→22:53)
[2022-05-23 21:35] LABS: CARBON DIOXIDE,CO2 30.6 mmol/L (21.0-32.0); POTASSIUM,K 4.1 mmol/L (3.5-5.1)
[2022-05-23] MEDS ORDERED: Magnesium Sulfate/Water 2 GM in Premix Bag 1 BAG IV ONE (22:07)
[2022-05-23] MEDS ORDERED: Naloxone 0.4 MG/ML SDV ONE (22:08)
[2022-05-23] MEDS ORDERED: Ondansetron 4 MG/2 ML SDV ONE (22:14)
[2022-05-23] MEDS ORDERED: Ondansetron 4 MG/2 ML SDV IVPUSH ONE (22:16)
[2022-05-23] MEDS ORDERED: Naloxone 0.4 MG/ML SDV IVPUSH ONE ×2 (22:16→23:45)
[2022-05-23] MEDS ORDERED: Naloxone 0.4 MG/ML SDV IVPUSH STA ×2 (22:49→22:54)
[2022-05-23] MEDS ORDERED: Albuterol 0.083% 2.5 MG/3 ML Neb Soln NEB STA (23:44)
[2022-05-24] MEDS ORDERED: Albuterol 0.083% 2.5 MG/3 ML Neb Soln NEB STA (01:45)
[2022-05-24] MEDS ORDERED: Albuterol/Ipratropium 3.0-0.5 MG/3 ML Neb Soln NEB ONE (01:55)
[2022-05-24] MEDS ORDERED: Doxycycline 100 MG in Sodium Chloride 0.9% 100 ML IV STA (02:00)
[2022-05-24] MEDS ORDERED: Albuterol/Ipratropium 3.0-0.5 MG/3 ML Neb Soln NEB SCH (06:00)
[2022-05-24] MEDS ORDERED: Morphine 15 MG Tab.ER PO SCH (07:45)
[2022-05-24 08:05] LABS: POTASSIUM,K 4.3 mmol/L (3.5-5.1)
[2022-05-24] MEDS ORDERED: Doxycycline 100 MG Cap PO SCH (09:00)
[2022-05-24] MEDS ORDERED: Topiramate 100 MG Tab PO SCH (09:00)
[2022-05-24] MEDS ORDERED: predniSONE 20 MG Tab PO SCH (10:00)
[2022-05-24] MEDS ORDERED: Sertraline 25 MG Tab PO SCH (10:30)
[2022-05-24] MEDS ORDERED: tiZANidine 4 MG Tab PO PRN (14:00)
[2022-05-24] MEDS ORDERED: Gabapentin 300 MG Cap PO SCH (14:00)
[2022-05-24] MEDS ORDERED: Rivaroxaban 10 MG Tab PO SCH (21:00)
== END 2022-05-24 11:07 | disposition home or self-care (01) ==
LOC: MW.ED 20:40 → MW.MS 05-24 01:58
PROVIDERS: ADMIT Internal Medicine; ATTEND Internal Medicine
DX: M32.9 Systemic lupus erythematosus, unspecified (principal); J96.01 Acute respiratory failure with hypoxia; J44.9 Chronic obstructive pulmonary disease, unspecified; G93.40 Encephalopathy, unspecified; G89.29 Other chronic pain; I25.10 Atherosclerotic heart disease of native coronary artery without angina pectoris; F41.9 Anxiety disorder, unspecified; F32.A Depression, unspecified; F17.210 Nicotine dependence, cigarettes, uncomplicated; Z87.39 Personal history of other diseases of the musculoskeletal system and connective tissue; Z86.718 Personal history of other venous thrombosis and embolism; Z79.899 Other long term (current) drug therapy; Z20.822 Contact with and (suspected) exposure to COVID-19; Z98.890 Other specified postprocedural states
CPT/HCPCS: 36415; 70450; 70450-26; 71045; 71045-26; 80048; 80053; 80305-QW; 81003; 82803; 83605; 83735; 83880; 84443; 84484; 85025; 85610; 87040; 87181; 87184; 93005; 93010; 94640; 94660; 96361; 96365; 96366; 96375; 96376; 99236; 99291; A9270-GY; G0378; J2310; J2405; J3475; J3490; J7050; J7120; J7620-GY; U0002

== ENCOUNTER 2022-05-25 11:01 | Observation (INO) | payer MEDICAID ==
[2022-05-25 13:41] LABS: BLOOD UREA NITROGEN,BUN 11 mg/dL (7.0-18.0); CHLORIDE,CL 105 mmol/L (98-107); GLUCOSE RANDOM 82 mg/dL (74-106); POTASSIUM,K 3.8 mmol/L (3.5-5.1); SODIUM,NA 140 mmol/L (136-145)
[2022-05-25 13:43] LABS: ESTIMATED GFR 73 mL/min (>60)
[2022-05-25] MEDS ORDERED: VANCOmycin 1.5 GM/300 ML 1.5 GM in Premix Bag 1 BAG IV ONE (13:45)
[2022-05-25] MEDS ORDERED: tiZANidine 4 MG Tab PO PRN (13:54)
[2022-05-25] MEDS ORDERED: ClonazePAM 0.5 MG Tab PO PRN ×2 (13:54→15:08)
[2022-05-25] MEDS ORDERED: Hydroxychloroquine 200 MG Tab PO SCH (14:00)
[2022-05-25] MEDS ORDERED: Naloxone 0.4 MG/ML SDV IVPUSH PRN (15:26)
[2022-05-25] MEDS: Gabapentin 300 MG Cap PO SCH ×2 (15:37→21:22)
[2022-05-25] MEDS: Morphine 15 MG Tab PO PRN (17:01)
[2022-05-25] MEDS ORDERED: Rivaroxaban 10 MG Tab PO SCH (21:00)
[2022-05-25] MEDS: Hydroxychloroquine 200 MG Tab PO SCH (21:22)
[2022-05-25] MEDS: Topiramate 100 MG Tab PO SCH (21:23)
[2022-05-25] MEDS: Morphine 15 MG Tab.ER PO PRN (23:31)
[2022-05-26] MEDS: Midodrine 5 MG Tab PO SCH ×3 (01:11→06:43)
[2022-05-26] MEDS ORDERED: Levalbuterol HCl 1.25 MG/3 ML Neb INH SCH (05:00)
[2022-05-26] MEDS: Gabapentin 300 MG Cap PO SCH (05:16)
[2022-05-26] MEDS: Morphine 15 MG Tab PO PRN (06:02)
[2022-05-26 06:21] LABS: CARBON DIOXIDE,CO2 29.7 mmol/L (21.0-32.0); POTASSIUM,K 4.1 mmol/L (3.5-5.1)
[2022-05-26] MEDS: Hydroxychloroquine 200 MG Tab PO SCH (08:06)
[2022-05-26] MEDS: Topiramate 100 MG Tab PO SCH (08:07)
[2022-05-26] MEDS ORDERED: Sertraline 25 MG Tab PO SCH (09:00)
[2022-05-26] MEDS: Morphine 15 MG Tab.ER PO PRN (11:39)
[2022-05-26] MEDS ORDERED: VANCOmycin 1.5 GM/300 ML 1.5 GM in Premix Bag 1 BAG IV SCH (14:00)
[2022-05-26] MEDS ORDERED: Pantoprazole 40 MG Tab.CR PO SCH (21:00)
== END 2022-05-26 12:45 | disposition home or self-care (01) ==
LOC: INTOOBSV 11:01 → MW.MS 11:01
PROVIDERS: ADMIT Internal Medicine; ATTEND Internal Medicine
DX: R78.81 Bacteremia (principal); M32.9 Systemic lupus erythematosus, unspecified; I25.10 Atherosclerotic heart disease of native coronary artery without angina pectoris; M19.90 Unspecified osteoarthritis, unspecified site; G89.29 Other chronic pain; M54.9 Dorsalgia, unspecified; M79.10 Myalgia, unspecified site; F41.9 Anxiety disorder, unspecified; F32.A Depression, unspecified; Z86.718 Personal history of other venous thrombosis and embolism; Z87.39 Personal history of other diseases of the musculoskeletal system and connective tissue; Z79.899 Other long term (current) drug therapy; Z20.822 Contact with and (suspected) exposure to COVID-19; Z88.6 Allergy status to analgesic agent; Z88.4 Allergy status to anesthetic agent; Z88.8 Allergy status to other drugs, medicaments and biological substances; Z98.890 Other specified postprocedural states
CPT/HCPCS: 36415; 71045; 80053; 80202; 81001; 85025; 87040; 87086; 87635; A9270; G0378; J3370; J7612; U0002

== ENCOUNTER 2023-06-03 08:20 | Emergency (ER) | payer MEDICAID ==
[2023-06-03 09:29] LABS: BASOPHILS ABSOLUTE AUTO 0.02 K/uL (0.00-0.20); BASOPHILS PERCENT AUTO 0.2 % (0.0-1.0); EOSINOPHILS ABSOLUTE AUTO 0.18 K/uL (0.00-0.45); EOSINOPHILS PERCENT AUTO 2.1 % (0.0-6.0); HEMATOCRIT 42.2 % (37.0-47.0); HEMOGLOBIN 13.6 g/dL (12.0-16.0); IMMATURE GRAN ABSOLUTE AUTO 0.03 K/uL (0.00-0.05); IMMATURE GRAN PERCENT AUTO 0.4 % (0.0-0.4); LYMPHOCYTES ABSOLUTE AUTO 2.11 K/uL (1.00-4.80); LYMPHOCYTES PERCENT AUTO 25.2 % (24.0-44.0); MEAN CORPUSCULAR HEMOGLOBIN 29.4 pg (28.0-32.0); MEAN CORPUSCULAR HGB CONC 32.2 g/dL (32.0-36.0); MEAN CORPUSCULAR VOLUME 91.3 fL (83.0-99.0); MEAN PLATELET VOLUME 9.8 fL (9.4-12.3); MONOCYTES ABSOLUTE AUTO 0.57 K/uL (0.00-0.80); MONOCYTES PERCENT AUTO 6.8 % (0.0-8.0); NEUTROPHILS ABSOLUTE AUTO 5.47 K/uL (1.80-7.70); NEUTROPHILS PERCENT AUTO 65.3 % (41.0-71.0); PLATELET COUNT,PLT 156 K/uL (150-400); RED BLOOD CELL COUNT 4.62 M/uL (4.10-5.30); WHITE BLOOD CELL COUNT,WBC 8.38 K/uL (3.9-11.3)
[2023-06-03] MEDS: Albuterol/Ipratropium 3.0-0.5 MG/3 ML Neb Soln NEB ONE (09:43)
[2023-06-03 09:47] LABS: CALCIUM 8.9 mg/dL (8.5-10.1); CARBON DIOXIDE,CO2 29.8 mmol/L (21.0-32.0); EST CRCL DRUG DOSING (CG) 46.72 mL/min; POTASSIUM,K 4.6 mmol/L (3.5-5.1)
== END 2023-06-03 11:19 | disposition home or self-care (01) ==
LOC: MW.ED 08:20
DX: J44.1 Chronic obstructive pulmonary disease with (acute) exacerbation (principal); R22.40 Localized swelling, mass and lump, unspecified lower limb; I25.10 Atherosclerotic heart disease of native coronary artery without angina pectoris; Z90.49 Acquired absence of other specified parts of digestive tract; Z79.899 Other long term (current) drug therapy; Z91.048 Other nonmedicinal substance allergy status; Z88.8 Allergy status to other drugs, medicaments and biological substances; Z91.018 Allergy to other foods
CPT/HCPCS: 71045; 71045-26; 80048; 83880; 84484; 85025; 99283; 99285; J7620-GY

== ENCOUNTER 2023-06-10 07:36 | Emergency (ER) | payer MEDICAID ==
[2023-06-10] MEDS ORDERED: Naloxone 0.4 MG/ML SDV IVPUSH PRN (07:53)
[2023-06-10] MEDS: Sodium Chloride 0.9% 10 ML Syringe FLUSH PRN (08:30)
[2023-06-10] MEDS: Morphine 4 MG/ML Syringe IVPUSH ONE (08:30)
[2023-06-10] MEDS: Albuterol 0.083% 2.5 MG/3 ML Neb Soln NEB ONE (08:30)
[2023-06-10] MEDS: Sodium Chloride 0.9% 2.5 ML Syringe FLUSH PRN (08:30)
[2023-06-10] MEDS: Albuterol/Ipratropium 3.0-0.5 MG/3 ML Neb Soln NEB ONE (08:30)
[2023-06-10] MEDS: Ondansetron 4 MG/2 ML SDV IVPUSH ONE (08:30)
[2023-06-10 08:35] LABS: BASOPHILS ABSOLUTE AUTO 0.03 K/uL (0.00-0.20); BASOPHILS PERCENT AUTO 0.5 % (0.0-1.0); EOSINOPHILS ABSOLUTE AUTO 0.31 K/uL (0.00-0.45); EOSINOPHILS PERCENT AUTO 5.4 % (0.0-6.0); HEMATOCRIT 43.7 % (37.0-47.0); HEMOGLOBIN 14.3 g/dL (12.0-16.0); IMMATURE GRAN ABSOLUTE AUTO 0.04 K/uL (0.00-0.05); IMMATURE GRAN PERCENT AUTO 0.7 % (0.0-0.4); LYMPHOCYTES PERCENT AUTO 38.1 % (24.0-44.0); MEAN CORPUSCULAR HEMOGLOBIN 29.6 pg (28.0-32.0); MEAN CORPUSCULAR HGB CONC 32.7 g/dL (32.0-36.0); MEAN CORPUSCULAR VOLUME 90.5 fL (83.0-99.0); MEAN PLATELET VOLUME 10.1 fL (9.4-12.3); MONOCYTES ABSOLUTE AUTO 0.39 K/uL (0.00-0.80); MONOCYTES PERCENT AUTO 6.8 % (0.0-8.0); NEUTROPHILS PERCENT AUTO 48.5 % (41.0-71.0); PLATELET COUNT,PLT 174 K/uL (150-400); RED BLOOD CELL COUNT 4.83 M/uL (4.10-5.30); WHITE BLOOD CELL COUNT,WBC 5.77 K/uL (3.9-11.3)
[2023-06-10 08:36] LABS: BASE EXCESS VENOUS 2.3 (-2.0-3.0); PH,VENOUS 7.34 (7.31-7.41)
[2023-06-10 08:50] LABS: INR 0.96 (0.86-1.11); PTT,PARTIAL THROMBOPLSTIN TIME 21.6 SEC (23.9-30.7)
[2023-06-10 08:53] LABS: APPEARANCE,URINE CLEAR; BILIRUBIN,URINE NEGATIVE (NEGATIVE); COLOR,URINE STRAW; GLUCOSE,URINE NEGATIVE (NEGATIVE); KETONES,URINE NEGATIVE (NEGATIVE); LEUKOCYTE ESTERASE,URINE TRACE (NEGATIVE); NITRITE,URINE NEGATIVE (NEGATIVE); OCCULT BLOOD,URINE NEGATIVE (NEGATIVE); PROTEIN,URINE NEGATIVE (NEGATIVE); UROBILINOGEN,URINE 0.2 EU/dL (<2.0)
[2023-06-10 09:00] LABS: BACTERIA,URINE RARE (NEGATIVE); EPITHELIAL CELLS,URINE FEW (NONE-FEW); MUCUS,URINE LIGHT (NONE-MOD); RBC,URINE NONE SEEN (0-2/HPF); WBC,URINE 0-1 (0-5/HPF)
[2023-06-10 09:05] LABS: A/G RATIO 0.9 (0.9-1.6); ALBUMIN 3.3 g/dL (3.4-5.0); BILIRUBIN TOTAL 0.2 mg/dL (0.2-1.0); CALCIUM 8.8 mg/dL (8.5-10.1); CARBON DIOXIDE,CO2 27.1 mmol/L (21.0-32.0); EST CRCL DRUG DOSING (CG) 46.72 mL/min; MAGNESIUM 1.8 mg/dL (1.8-2.4); POTASSIUM,K 4.6 mmol/L (3.5-5.1); PROTEIN TOTAL,TP 7.1 g/dL (6.4-8.2)
[2023-06-10] MEDS: Iopamidol 755 MG/ML 500 ML Multipack Bottle IVPUSH STA (10:11)
[2023-06-10] MEDS: LORazepam 2 MG/ML SDV IVPUSH ONE (11:20)
== END 2023-06-10 17:21 | disposition home or self-care (01) ==
LOC: MW.ED 07:36
DX: R10.9 Unspecified abdominal pain (principal); R20.0 Anesthesia of skin; J44.9 Chronic obstructive pulmonary disease, unspecified; R43.9 Unspecified disturbances of smell and taste; Z86.718 Personal history of other venous thrombosis and embolism; Z79.01 Long term (current) use of anticoagulants; Z90.49 Acquired absence of other specified parts of digestive tract; Z91.048 Other nonmedicinal substance allergy status; Z88.4 Allergy status to anesthetic agent; Z91.018 Allergy to other foods; Z88.8 Allergy status to other drugs, medicaments and biological substances
CPT/HCPCS: 36415; 70450; 71275; 74177; 74181; 80053; 81001; 82803; 83690; 83735; 83880; 84484; 85025; 85610; 85730; 87086; 93005; 93970; 96374; 96375; 99285; J2060; J2270; J2405; J3490; Q9967; 93010; 99284; J7620-GY

== ENCOUNTER 2023-06-16 17:14 | Emergency (ER) | payer MEDICAID ==
[2023-06-16 18:04] LABS: BASOPHILS ABSOLUTE AUTO 0.02 K/uL (0.00-0.20); BASOPHILS PERCENT AUTO 0.4 % (0.0-1.0); EOSINOPHILS ABSOLUTE AUTO 0.09 K/uL (0.00-0.45); HEMATOCRIT 44.4 % (37.0-47.0); HEMOGLOBIN 14.8 g/dL (12.0-16.0); IMMATURE GRAN ABSOLUTE AUTO 0.01 K/uL (0.00-0.05); IMMATURE GRAN PERCENT AUTO 0.2 % (0.0-0.4); LYMPHOCYTES ABSOLUTE AUTO 0.99 K/uL (1.00-4.80); LYMPHOCYTES PERCENT AUTO 21.6 % (24.0-44.0); MEAN CORPUSCULAR HGB CONC 33.3 g/dL (32.0-36.0); MEAN CORPUSCULAR VOLUME 89.9 fL (83.0-99.0); MEAN PLATELET VOLUME 10.1 fL (9.4-12.3); MONOCYTES ABSOLUTE AUTO 0.47 K/uL (0.00-0.80); MONOCYTES PERCENT AUTO 10.2 % (0.0-8.0); NEUTROPHILS ABSOLUTE AUTO 3.01 K/uL (1.80-7.70); NEUTROPHILS PERCENT AUTO 65.6 % (41.0-71.0); PLATELET COUNT,PLT 184 K/uL (150-400); RED BLOOD CELL COUNT 4.94 M/uL (4.10-5.30); WHITE BLOOD CELL COUNT,WBC 4.59 K/uL (3.9-11.3)
[2023-06-16 18:33] LABS: CORONAVIRUS COVID-19 NAA NEGATIVE (NEGATIVE); INFLUENZA A NAA NEGATIVE (NEGATIVE); INFLUENZA B NAA NEGATIVE (NEGATIVE); RESPIRATORY SYNCYTIAL VIR NAA NEGATIVE (NEGATIVE)
[2023-06-16 18:38] LABS: ALBUMIN 3.3 g/dL (3.4-5.0); BILIRUBIN TOTAL 0.3 mg/dL (0.2-1.0); CALCIUM 8.9 mg/dL (8.5-10.1); CARBON DIOXIDE,CO2 25.7 mmol/L (21.0-32.0); CREATININE 0.9 mg/dL (0.6-1.0); EST CRCL DRUG DOSING (CG) 51.92 mL/min; POTASSIUM,K 4.1 mmol/L (3.5-5.1); PROTEIN TOTAL,TP 7.2 g/dL (6.4-8.2)
[2023-06-16 18:43] LABS: A/G RATIO 0.9 (0.9-1.6)
[2023-06-16] MEDS: Iopamidol 755 MG/ML 500 ML Multipack Bottle IVPUSH ONE (19:47)
[2023-06-16] MEDS: Levofloxacin 500 MG Tab PO STA (19:59)
[2023-06-16] MEDS: Albuterol/Ipratropium 3.0-0.5 MG/3 ML Neb Soln NEB STA (20:11)
[2023-06-16] MEDS: Sodium Chloride 0.9% 2.5 ML Syringe FLUSH PRN (20:12)
[2023-06-16] MEDS: Sodium Chloride 0.9% 10 ML Syringe FLUSH PRN (20:12)
== END 2023-06-16 21:33 | disposition home or self-care (01) ==
LOC: MW.ED 17:14
DX: J44.9 Chronic obstructive pulmonary disease, unspecified (principal); J18.9 Pneumonia, unspecified organism; F17.210 Nicotine dependence, cigarettes, uncomplicated; I25.10 Atherosclerotic heart disease of native coronary artery without angina pectoris; Z79.02 Long term (current) use of antithrombotics/antiplatelets; Z79.899 Other long term (current) drug therapy; Z88.8 Allergy status to other drugs, medicaments and biological substances; Z91.018 Allergy to other foods; Z91.048 Other nonmedicinal substance allergy status
CPT/HCPCS: 0241U; 36415; 71045; 71275; 80053; 83690; 83880; 84484; 85025; 99285; A9270; J3490; Q9967; 93010; 99284; J7620-GY

== ENCOUNTER 2023-06-18 20:28 | Emergency (ER) | payer MEDICAID ==
[2023-06-18] MEDS: Magnesium Sulfate/Water 2 GM in Premix Bag 1 BAG IV ONE (20:39)
[2023-06-18] MEDS: Ondansetron 4 MG/2 ML SDV IVPUSH ONE (20:39)
[2023-06-18] MEDS: Sodium Chloride 0.9% 2.5 ML Syringe FLUSH PRN (20:40)
[2023-06-18] MEDS: Sodium Chloride 0.9% 10 ML Syringe FLUSH PRN (20:40)
[2023-06-18] MEDS: Lactated Ringers 1,000 ML IV ONE (20:40)
[2023-06-18 21:24] LABS: BASOPHILS ABSOLUTE AUTO 0.01 K/uL (0.00-0.20); BASOPHILS PERCENT AUTO 0.2 % (0.0-1.0); EOSINOPHILS ABSOLUTE AUTO 0.04 K/uL (0.00-0.45); HEMATOCRIT 43.4 % (37.0-47.0); HEMOGLOBIN 14.3 g/dL (12.0-16.0); IMMATURE GRAN ABSOLUTE AUTO 0.01 K/uL (0.00-0.05); IMMATURE GRAN PERCENT AUTO 0.2 % (0.0-0.4); LYMPHOCYTES ABSOLUTE AUTO 1.43 K/uL (1.00-4.80); MEAN CORPUSCULAR HEMOGLOBIN 29.2 pg (28.0-32.0); MEAN CORPUSCULAR HGB CONC 32.9 g/dL (32.0-36.0); MEAN CORPUSCULAR VOLUME 88.6 fL (83.0-99.0); MEAN PLATELET VOLUME 10.2 fL (9.4-12.3); MONOCYTES ABSOLUTE AUTO 0.42 K/uL (0.00-0.80); NEUTROPHILS ABSOLUTE AUTO 2.29 K/uL (1.80-7.70); NEUTROPHILS PERCENT AUTO 54.6 % (41.0-71.0); PLATELET COUNT,PLT 203 K/uL (150-400)
[2023-06-18 21:24] LABS: BASE EXCESS VENOUS 1.3 (-2.0-3.0); PH,VENOUS 7.38 (7.31-7.41)
[2023-06-18] MEDS: Azithromycin 500 MG in Sodium Chloride 0.9% 250 ML IV ONE (21:35)
[2023-06-18] MEDS: cefTRIAXone 1 GM in Sodium Chloride 0.9% 50 ML IV ONE (21:36)
[2023-06-18] MEDS ORDERED: Naloxone 0.4 MG/ML SDV IVPUSH PRN (21:36)
[2023-06-18] MEDS: Morphine 4 MG/ML Syringe IVPUSH ONE (21:39)
[2023-06-18 21:50] LABS: A/G RATIO 0.9 (0.9-1.6); ALANINE AMINOTRANSFERASE,ALT 25 IU/L (14-63); ALBUMIN 3.2 g/dL (3.4-5.0); ALKALINE PHOSPHATASE 89 U/L (46-116); ASPARTATE AMNIOTRANSFERASE,AST 23 IU/L (15-37); BILIRUBIN TOTAL 0.5 mg/dL (0.2-1.0); BLOOD UREA NITROGEN,BUN 13 mg/dL (7.0-18.0); CALCIUM 8.7 mg/dL (8.5-10.1); CARBON DIOXIDE,CO2 25.9 mmol/L (21.0-32.0); CHLORIDE,CL 103 mmol/L (98-107); CREATININE 0.9 mg/dL (0.6-1.0); EST CRCL DRUG DOSING (CG) 51.92 mL/min; GLUCOSE RANDOM 107 mg/dL (74-106); LIPASE 24 U/L (16-77); POTASSIUM,K 4.3 mmol/L (3.5-5.1); PROTEIN TOTAL,TP 6.9 g/dL (6.4-8.2); SODIUM,NA 140 mmol/L (136-145)
[2023-06-18 21:58] LABS: ESTIMATED GFR 73 mL/min (>60)
[2023-06-18] MEDS: Methocarbamol 750 MG Tab PO STA (22:43)
[2023-06-18] MEDS: Ondansetron 4 MG/2 ML SDV IVPUSH STA (23:17)
[2023-06-19] MEDS: droPERidol 5 MG/2 ML SDV IVPUSH ONE (00:16)
[2023-06-19] MEDS: diphenhydrAMINE 50 MG/ML SDV IVPUSH ONE (00:19)
== END 2023-06-19 01:57 | disposition home or self-care (01) ==
LOC: MW.ED 20:28
DX: J44.1 Chronic obstructive pulmonary disease with (acute) exacerbation (principal); G89.29 Other chronic pain; I25.10 Atherosclerotic heart disease of native coronary artery without angina pectoris; Z90.49 Acquired absence of other specified parts of digestive tract; Z79.899 Other long term (current) drug therapy; Z79.01 Long term (current) use of anticoagulants; Z88.8 Allergy status to other drugs, medicaments and biological substances; Z91.018 Allergy to other foods; Z91.048 Other nonmedicinal substance allergy status; Z88.4 Allergy status to anesthetic agent
CPT/HCPCS: 36415; 71045; 80053; 82803; 83690; 84484; 85025; 87040; 96361; 96365; 96367; 96375; 96376; 99285; A9270; J0456; J0696; J1200; J1790; J2270; J2405; J3475; J3490; J7050; J7120; 93010; 99284

== ENCOUNTER 2023-11-11 12:53 | Emergency (ER) | payer MEDICAID ==
[2023-11-11] MEDS: Morphine 4 MG/ML Syringe IVPUSH ONE ×3 (13:33→15:47)
[2023-11-11] MEDS: Ondansetron 4 MG/2 ML SDV IVPUSH ONE (13:33)
[2023-11-11] MEDS: Sodium Chloride 0.9% 1,000 ML IV STA (13:34)
[2023-11-11] MEDS: Sodium Chloride 0.9% 10 ML Syringe FLUSH PRN (13:35)
[2023-11-11] MEDS: Sodium Chloride 0.9% 2.5 ML Syringe FLUSH PRN (13:35)
[2023-11-11 14:35] LABS: BASOPHILS ABSOLUTE AUTO 0.02 K/uL (0.00-0.20); BASOPHILS PERCENT AUTO 0.3 % (0.0-1.0); EOSINOPHILS ABSOLUTE AUTO 0.08 K/uL (0.00-0.45); EOSINOPHILS PERCENT AUTO 1.1 % (0.0-6.0); HEMATOCRIT 38.7 % (37.0-47.0); HEMOGLOBIN 12.7 g/dL (12.0-16.0); IMMATURE GRAN ABSOLUTE AUTO 0.02 K/uL (0.00-0.05); IMMATURE GRAN PERCENT AUTO 0.3 % (0.0-0.4); LYMPHOCYTES ABSOLUTE AUTO 1.25 K/uL (1.00-4.80); LYMPHOCYTES PERCENT AUTO 16.5 % (24.0-44.0); MEAN CORPUSCULAR HEMOGLOBIN 28.9 pg (28.0-32.0); MEAN CORPUSCULAR HGB CONC 32.8 g/dL (32.0-36.0); MEAN PLATELET VOLUME 11.1 fL (9.4-12.3); MONOCYTES ABSOLUTE AUTO 0.43 K/uL (0.00-0.80); MONOCYTES PERCENT AUTO 5.7 % (0.0-8.0); NEUTROPHILS ABSOLUTE AUTO 5.78 K/uL (1.80-7.70); NEUTROPHILS PERCENT AUTO 76.1 % (41.0-71.0); PLATELET COUNT,PLT 129 K/uL (150-400); WHITE BLOOD CELL COUNT,WBC 7.58 K/uL (3.9-11.3)
[2023-11-11 15:04] LABS: A/G RATIO 0.7 (0.9-1.6); ALANINE AMINOTRANSFERASE,ALT 17 IU/L (14-63); ALBUMIN 2.5 g/dL (3.4-5.0); ALKALINE PHOSPHATASE 75 U/L (46-116); ASPARTATE AMNIOTRANSFERASE,AST 21 IU/L (15-37); BILIRUBIN TOTAL 0.8 mg/dL (0.2-1.0); BLOOD UREA NITROGEN,BUN 8 mg/dL (7.0-18.0); CALCIUM 8.7 mg/dL (8.5-10.1); CARBON DIOXIDE,CO2 29.6 mmol/L (21.0-32.0); CHLORIDE,CL 103 mmol/L (98-107); CREATININE 0.7 mg/dL (0.6-1.0); EST CRCL DRUG DOSING (CG) 69.81 mL/min; GLUCOSE RANDOM 98 mg/dL (74-106); POTASSIUM,K 4.1 mmol/L (3.5-5.1); PROTEIN TOTAL,TP 6.1 g/dL (6.4-8.2); SODIUM,NA 139 mmol/L (136-145)
[2023-11-11 15:05] LABS: ESTIMATED GFR 98 mL/min (>60)
[2023-11-11 16:28] LABS: GLUCOSE,URINE NEGATIVE (NEGATIVE); KETONES,URINE >=80 mg/dL (NEGATIVE); LEUKOCYTE ESTERASE,URINE NEGATIVE (NEGATIVE); NITRITE,URINE NEGATIVE (NEGATIVE); OCCULT BLOOD,URINE TRACE-INTACT (NEGATIVE); PROTEIN,URINE NEGATIVE (NEGATIVE); UROBILINOGEN,URINE 0.2 EU/dL (<2.0)
[2023-11-11 16:37] LABS: BILIRUBIN,URINE MODERATE (NEGATIVE); COLOR,URINE AMBER
[2023-11-11 16:38] LABS: APPEARANCE,URINE SLT CLOUDY
[2023-11-11 16:43] LABS: EPITHELIAL CELLS,URINE MODERATE (NONE-FEW); RBC,URINE 0-1 (0-2/HPF); WBC,URINE 0-2 (0-5/HPF)
[2023-11-11 16:44] LABS: AMORPHOUS SEDIMENT,URINE FEW (NEGATIVE); BACTERIA,URINE FEW (NEGATIVE); MUCUS,URINE FEW (NONE-MOD)
== END 2023-11-11 17:02 | disposition home or self-care (01) ==
LOC: MW.ED 12:53
DX: M25.512 Pain in left shoulder (principal); I25.10 Atherosclerotic heart disease of native coronary artery without angina pectoris; J44.9 Chronic obstructive pulmonary disease, unspecified; F17.210 Nicotine dependence, cigarettes, uncomplicated; Z79.899 Other long term (current) drug therapy; Z90.49 Acquired absence of other specified parts of digestive tract; Z75.8 Other problems related to medical facilities and other health care; Z88.8 Allergy status to other drugs, medicaments and biological substances; Z91.018 Allergy to other foods; Z91.048 Other nonmedicinal substance allergy status
CPT/HCPCS: 36415; 51798; 73030; 80053; 81001; 84484; 85025; 93005; 96374; 96375; 96376; 99285; J2270; J2405; J3490; J7030; 93010; 99284

== ENCOUNTER 2023-11-17 04:53 | Emergency (ER) | payer MEDICAID ==
[2023-11-17 05:12] LABS: BASOPHILS ABSOLUTE AUTO 0.01 K/uL (0.00-0.20); BASOPHILS PERCENT AUTO 0.2 % (0.0-1.0); EOSINOPHILS ABSOLUTE AUTO 0.17 K/uL (0.00-0.45); EOSINOPHILS PERCENT AUTO 2.8 % (0.0-6.0); HEMATOCRIT 40.6 % (37.0-47.0); HEMOGLOBIN 13.1 g/dL (12.0-16.0); IMMATURE GRAN ABSOLUTE AUTO 0.02 K/uL (0.00-0.05); IMMATURE GRAN PERCENT AUTO 0.3 % (0.0-0.4); LYMPHOCYTES ABSOLUTE AUTO 1.65 K/uL (1.00-4.80); LYMPHOCYTES PERCENT AUTO 27.5 % (24.0-44.0); MEAN CORPUSCULAR HEMOGLOBIN 28.1 pg (28.0-32.0); MEAN CORPUSCULAR HGB CONC 32.3 g/dL (32.0-36.0); MEAN CORPUSCULAR VOLUME 87.1 fL (83.0-99.0); MEAN PLATELET VOLUME 10.9 fL (9.4-12.3); MONOCYTES ABSOLUTE AUTO 0.37 K/uL (0.00-0.80); MONOCYTES PERCENT AUTO 6.2 % (0.0-8.0); NEUTROPHILS ABSOLUTE AUTO 3.77 K/uL (1.80-7.70); PLATELET COUNT,PLT 224 K/uL (150-400); RED BLOOD CELL COUNT 4.66 M/uL (4.10-5.30); WHITE BLOOD CELL COUNT,WBC 5.99 K/uL (3.9-11.3)
[2023-11-17] MEDS: Albuterol/Ipratropium 3.0-0.5 MG/3 ML Neb Soln NEB ONE (05:14)
[2023-11-17] MEDS: HYDROmorphone 2 MG Tab PO ONE (05:24)
[2023-11-17 05:50] LABS: A/G RATIO 0.8 (0.9-1.6); ACETAMINOPHEN <2.0 ug/mL; ALANINE AMINOTRANSFERASE,ALT 15 IU/L (14-63); ALBUMIN 2.8 g/dL (3.4-5.0); ALKALINE PHOSPHATASE 80 U/L (46-116); ASPARTATE AMNIOTRANSFERASE,AST 16 IU/L (15-37); BILIRUBIN TOTAL 0.5 mg/dL (0.2-1.0); BLOOD UREA NITROGEN,BUN 6 mg/dL (7.0-18.0); CALCIUM 9.3 mg/dL (8.5-10.1); CARBON DIOXIDE,CO2 29.2 mmol/L (21.0-32.0); CHLORIDE,CL 102 mmol/L (98-107); CREATINE KINASE,CK 92 U/L (26-308); CREATININE 0.8 mg/dL (0.6-1.0); EST CRCL DRUG DOSING (CG) 61.09 mL/min; GLUCOSE RANDOM 119 mg/dL (74-106); MAGNESIUM 1.5 mg/dL (1.8-2.4); PHOSPHORUS 2.8 mg/dL (2.6-4.7); POTASSIUM,K 3.8 mmol/L (3.5-5.1); PRO B-TYPE NATRIUR PEPT,BNPPRO 66 pg/mL (0-125); PROTEIN TOTAL,TP 6.4 g/dL (6.4-8.2); SODIUM,NA 141 mmol/L (136-145)
[2023-11-17 05:51] LABS: ESTIMATED GFR 84 mL/min (>60)
[2023-11-17] MEDS ORDERED: Magnesium Sulfate/Water 2 GM in Premix Bag 1 BAG IV ONE (05:59)
[2023-11-17] MEDS: Magnesium Oxide 400 MG Tab PO ONE (06:06)
[2023-11-17] MEDS: Promethazine 25 MG Tab PO ONE (06:35)
== END 2023-11-17 06:48 | disposition home or self-care (01) ==
LOC: MW.ED 04:53
DX: J44.9 Chronic obstructive pulmonary disease, unspecified (principal); R52 Pain, unspecified; I25.10 Atherosclerotic heart disease of native coronary artery without angina pectoris; Z91.048 Other nonmedicinal substance allergy status; Z88.6 Allergy status to analgesic agent; Z91.018 Allergy to other foods; Z88.4 Allergy status to anesthetic agent; Z79.01 Long term (current) use of anticoagulants; Z88.8 Allergy status to other drugs, medicaments and biological substances; Z90.49 Acquired absence of other specified parts of digestive tract; Z75.8 Other problems related to medical facilities and other health care
CPT/HCPCS: 36415; 71045; 80053; 80143; 82550; 83735; 83880; 84100; 84484; 85025; 99285; A9270; J7620-GY

== ENCOUNTER 2023-11-18 13:00 | Emergency (ER) | payer MEDICAID ==
[2023-11-18] MEDS: Pregabalin 50 MG Cap PO ONE (13:31)
[2023-11-18] MEDS: Sodium Chloride 0.9% 1,000 ML IV ONE (13:31)
[2023-11-18] MEDS: Ondansetron 4 MG/2 ML SDV IVPUSH ONE (13:31)
[2023-11-18 14:09] LABS: BASOPHILS ABSOLUTE AUTO 0.02 K/uL (0.00-0.20); BASOPHILS PERCENT AUTO 0.4 % (0.0-1.0); EOSINOPHILS ABSOLUTE AUTO 0.12 K/uL (0.00-0.45); EOSINOPHILS PERCENT AUTO 2.2 % (0.0-6.0); HEMATOCRIT 40.3 % (37.0-47.0); HEMOGLOBIN 13.2 g/dL (12.0-16.0); IMMATURE GRAN ABSOLUTE AUTO 0.03 K/uL (0.00-0.05); IMMATURE GRAN PERCENT AUTO 0.6 % (0.0-0.4); LYMPHOCYTES ABSOLUTE AUTO 1.71 K/uL (1.00-4.80); LYMPHOCYTES PERCENT AUTO 31.8 % (24.0-44.0); MEAN CORPUSCULAR HEMOGLOBIN 28.2 pg (28.0-32.0); MEAN CORPUSCULAR HGB CONC 32.8 g/dL (32.0-36.0); MEAN CORPUSCULAR VOLUME 86.1 fL (83.0-99.0); MEAN PLATELET VOLUME 10.5 fL (9.4-12.3); MONOCYTES ABSOLUTE AUTO 0.36 K/uL (0.00-0.80); MONOCYTES PERCENT AUTO 6.7 % (0.0-8.0); NEUTROPHILS ABSOLUTE AUTO 3.14 K/uL (1.80-7.70); NEUTROPHILS PERCENT AUTO 58.3 % (41.0-71.0); PLATELET COUNT,PLT 251 K/uL (150-400); RED BLOOD CELL COUNT 4.68 M/uL (4.10-5.30); WHITE BLOOD CELL COUNT,WBC 5.38 K/uL (3.9-11.3)
[2023-11-18 14:59] LABS: A/G RATIO 0.8 (0.9-1.6); ALBUMIN 2.7 g/dL (3.4-5.0); BILIRUBIN TOTAL 0.4 mg/dL (0.2-1.0); CALCIUM 9.5 mg/dL (8.5-10.1); CARBON DIOXIDE,CO2 28.9 mmol/L (21.0-32.0); CREATININE 0.8 mg/dL (0.6-1.0); EST CRCL DRUG DOSING (CG) 69.13 mL/min; MAGNESIUM 1.8 mg/dL (1.8-2.4); POTASSIUM,K 3.9 mmol/L (3.5-5.1); PROTEIN TOTAL,TP 6.3 g/dL (6.4-8.2)
== END 2023-11-18 16:20 | disposition home or self-care (01) ==
LOC: MW.ED 13:00
DX: R52 Pain, unspecified (principal); I25.10 Atherosclerotic heart disease of native coronary artery without angina pectoris; J44.9 Chronic obstructive pulmonary disease, unspecified; Z76.5 Malingerer [conscious simulation]; Z90.49 Acquired absence of other specified parts of digestive tract; Z79.899 Other long term (current) drug therapy; Z79.01 Long term (current) use of anticoagulants; Z79.1 Long term (current) use of non-steroidal anti-inflammatories (NSAID); Z79.891 Long term (current) use of opiate analgesic; Z79.51 Long term (current) use of inhaled steroids; Z91.048 Other nonmedicinal substance allergy status; Z88.8 Allergy status to other drugs, medicaments and biological substances; Z91.018 Allergy to other foods; Z75.8 Other problems related to medical facilities and other health care
CPT/HCPCS: 36415; 80053; 83735; 84484; 85025; 96361; 96374; 99284; A9270; J2405; J7030

== ENCOUNTER 2023-11-19 20:36 | Emergency (ER) | payer MEDICAID ==
[2023-11-19] MEDS: Pregabalin 75 MG Cap PO ONE (21:32)
== END 2023-11-19 21:50 | disposition home or self-care (01) ==
LOC: MW.ED 20:36
DX: Z02.89 Encounter for other administrative examinations (principal); Z76.5 Malingerer [conscious simulation]; Z75.8 Other problems related to medical facilities and other health care; J44.9 Chronic obstructive pulmonary disease, unspecified; Z90.49 Acquired absence of other specified parts of digestive tract; Z79.899 Other long term (current) drug therapy; Z91.018 Allergy to other foods; Z88.8 Allergy status to other drugs, medicaments and biological substances; Z91.048 Other nonmedicinal substance allergy status
CPT/HCPCS: 99284; A9270

== ENCOUNTER 2023-11-20 05:22 | Emergency (ER) | payer MEDICAID ==
[2023-11-20 06:45] LABS: BASOPHILS ABSOLUTE AUTO 0.05 K/uL (0.00-0.20); BASOPHILS PERCENT AUTO 0.7 % (0.0-1.0); EOSINOPHILS ABSOLUTE AUTO 0.19 K/uL (0.00-0.45); EOSINOPHILS PERCENT AUTO 2.5 % (0.0-6.0); HEMATOCRIT 43.7 % (37.0-47.0); HEMOGLOBIN 14.4 g/dL (12.0-16.0); IMMATURE GRAN ABSOLUTE AUTO 0.05 K/uL (0.00-0.05); IMMATURE GRAN PERCENT AUTO 0.7 % (0.0-0.4); LYMPHOCYTES ABSOLUTE AUTO 1.72 K/uL (1.00-4.80); LYMPHOCYTES PERCENT AUTO 22.6 % (24.0-44.0); MEAN CORPUSCULAR HEMOGLOBIN 28.4 pg (28.0-32.0); MEAN CORPUSCULAR VOLUME 86.2 fL (83.0-99.0); MEAN PLATELET VOLUME 11.5 fL (9.4-12.3); MONOCYTES ABSOLUTE AUTO 0.49 K/uL (0.00-0.80); MONOCYTES PERCENT AUTO 6.4 % (0.0-8.0); NEUTROPHILS ABSOLUTE AUTO 5.12 K/uL (1.80-7.70); NEUTROPHILS PERCENT AUTO 67.1 % (41.0-71.0); PLATELET COUNT,PLT 209 K/uL (150-400); RED BLOOD CELL COUNT 5.07 M/uL (4.10-5.30); WHITE BLOOD CELL COUNT,WBC 7.62 K/uL (3.9-11.3)
[2023-11-20] MEDS: Morphine 4 MG/ML Syringe IVPUSH ONE ×2 (06:46→07:36)
[2023-11-20] MEDS: Iopamidol 755 MG/ML 500 ML Multipack Bottle IVPUSH ONE (07:14)
[2023-11-20 07:35] LABS: CALCIUM 9.4 mg/dL (8.5-10.1); CARBON DIOXIDE,CO2 27.2 mmol/L (21.0-32.0); EST CRCL DRUG DOSING (CG) 53.16 mL/min; MAGNESIUM 1.7 mg/dL (1.8-2.4); POTASSIUM,K 3.6 mmol/L (3.5-5.1)
== END 2023-11-20 09:10 | disposition home or self-care (01) ==
LOC: MW.ED 05:22
DX: R09.02 Hypoxemia (principal); R00.0 Tachycardia, unspecified; J44.9 Chronic obstructive pulmonary disease, unspecified; Z79.899 Other long term (current) drug therapy; Z90.49 Acquired absence of other specified parts of digestive tract; Z91.018 Allergy to other foods; Z91.048 Other nonmedicinal substance allergy status; Z88.8 Allergy status to other drugs, medicaments and biological substances
CPT/HCPCS: 36415; 71275; 80048; 83735; 84484; 85025; 93005; 96374; 99284; J2270; Q9967

== ENCOUNTER 2023-11-30 06:11 | Emergency (ER) | payer MEDICAID ==
[2023-11-30 06:20] LABS: BASOPHILS ABSOLUTE AUTO 0.04 K/uL (0.00-0.20); BASOPHILS PERCENT AUTO 0.4 % (0.0-1.0); EOSINOPHILS ABSOLUTE AUTO 0.19 K/uL (0.00-0.45); EOSINOPHILS PERCENT AUTO 1.8 % (0.0-6.0); HEMATOCRIT 44.4 % (37.0-47.0); HEMOGLOBIN 14.2 g/dL (12.0-16.0); IMMATURE GRAN ABSOLUTE AUTO 0.06 K/uL (0.00-0.05); IMMATURE GRAN PERCENT AUTO 0.6 % (0.0-0.4); LYMPHOCYTES ABSOLUTE AUTO 3.87 K/uL (1.00-4.80); LYMPHOCYTES PERCENT AUTO 36.8 % (24.0-44.0); MEAN CORPUSCULAR HEMOGLOBIN 28.1 pg (28.0-32.0); MEAN CORPUSCULAR VOLUME 87.7 fL (83.0-99.0); MEAN PLATELET VOLUME 10.7 fL (9.4-12.3); MONOCYTES ABSOLUTE AUTO 0.75 K/uL (0.00-0.80); MONOCYTES PERCENT AUTO 7.1 % (0.0-8.0); NEUTROPHILS ABSOLUTE AUTO 5.62 K/uL (1.80-7.70); NEUTROPHILS PERCENT AUTO 53.3 % (41.0-71.0); PLATELET COUNT,PLT 183 K/uL (150-400); RED BLOOD CELL COUNT 5.06 M/uL (4.10-5.30); WHITE BLOOD CELL COUNT,WBC 10.53 K/uL (3.9-11.3)
[2023-11-30] MEDS: Sodium Chloride 0.9% 1,000 ML IV STA (06:40)
[2023-11-30] MEDS: HYDROmorphone 0.5 MG/0.5 ML Syringe IVPUSH ONE (06:40)
[2023-11-30] MEDS: HYDROmorphone 1 MG/ML Syringe IVPUSH ONE (06:44)
[2023-11-30] MEDS: Sodium Chloride 0.9% 2.5 ML Syringe FLUSH PRN (06:54)
[2023-11-30] MEDS: Sodium Chloride 0.9% 10 ML Syringe FLUSH PRN (06:55)
[2023-11-30 07:13] LABS: INR 1.18 (0.86-1.11)
[2023-11-30 07:22] LABS: A/G RATIO 1.1 (0.9-1.6); ALBUMIN 3.4 g/dL (3.4-5.0); BILIRUBIN TOTAL 0.5 mg/dL (0.2-1.0); CALCIUM 9.3 mg/dL (8.5-10.1); CARBON DIOXIDE,CO2 31.8 mmol/L (21.0-32.0); EST CRCL DRUG DOSING (CG) 48.87 mL/min; POTASSIUM,K 3.6 mmol/L (3.5-5.1); PROTEIN TOTAL,TP 6.6 g/dL (6.4-8.2)
== END 2023-11-30 08:33 | disposition home or self-care (01) ==
LOC: MW.ED 06:11
DX: S09.90XA Unspecified injury of head, initial encounter (principal); S29.012A Strain of muscle and tendon of back wall of thorax, initial encounter; Z75.8 Other problems related to medical facilities and other health care; J44.9 Chronic obstructive pulmonary disease, unspecified; Z90.49 Acquired absence of other specified parts of digestive tract; Z79.899 Other long term (current) drug therapy; Z91.018 Allergy to other foods; Z91.048 Other nonmedicinal substance allergy status; Z88.8 Allergy status to other drugs, medicaments and biological substances; W19.XXXA Unspecified fall, initial encounter
CPT/HCPCS: 36415; 70450; 71250; 72125; 72128; 72131; 80053; 85025; 85610; 86850; 86900; 86901; 96374; 99284; J1170; J3490; J7030

== ENCOUNTER 2023-12-08 10:29 | Emergency (ER) | payer MEDICAID ==
[2023-12-08] MEDS ORDERED: Acetaminophen 500 MG Tab PO ONE (10:36)
[2023-12-08 10:44] LABS: BASOPHILS ABSOLUTE AUTO 0.02 K/uL (0.00-0.20); BASOPHILS PERCENT AUTO 0.2 % (0.0-1.0); EOSINOPHILS ABSOLUTE AUTO 0.18 K/uL (0.00-0.45); EOSINOPHILS PERCENT AUTO 1.8 % (0.0-6.0); HEMATOCRIT 41.1 % (37.0-47.0); HEMOGLOBIN 13.3 g/dL (12.0-16.0); IMMATURE GRAN ABSOLUTE AUTO 0.04 K/uL (0.00-0.05); IMMATURE GRAN PERCENT AUTO 0.4 % (0.0-0.4); LYMPHOCYTES PERCENT AUTO 22.5 % (24.0-44.0); MEAN CORPUSCULAR HEMOGLOBIN 28.5 pg (28.0-32.0); MEAN CORPUSCULAR HGB CONC 32.4 g/dL (32.0-36.0); MEAN CORPUSCULAR VOLUME 88.2 fL (83.0-99.0); MEAN PLATELET VOLUME 11.1 fL (9.4-12.3); MONOCYTES ABSOLUTE AUTO 0.52 K/uL (0.00-0.80); MONOCYTES PERCENT AUTO 5.1 % (0.0-8.0); NEUTROPHILS ABSOLUTE AUTO 7.16 K/uL (1.80-7.70); PLATELET COUNT,PLT 127 K/uL (150-400); RED BLOOD CELL COUNT 4.66 M/uL (4.10-5.30); WHITE BLOOD CELL COUNT,WBC 10.22 K/uL (3.9-11.3)
[2023-12-08 11:08] LABS: ALBUMIN 3.3 g/dL (3.4-5.0); BILIRUBIN TOTAL 0.8 mg/dL (0.2-1.0); CALCIUM 9.1 mg/dL (8.5-10.1); CARBON DIOXIDE,CO2 25.3 mmol/L (21.0-32.0); EST CRCL DRUG DOSING (CG) 51.02 mL/min; MAGNESIUM 1.3 mg/dL (1.8-2.4); POTASSIUM,K 3.6 mmol/L (3.5-5.1); PROTEIN TOTAL,TP 6.6 g/dL (6.4-8.2)
[2023-12-08] MEDS ORDERED: Magnesium Oxide 400 MG Tab PO ONE (12:10)
== END 2023-12-08 16:25 | disposition left against medical advice (07) ==
LOC: MW.ED 10:29
DX: R52 Pain, unspecified (principal); Z76.5 Malingerer [conscious simulation]; I25.10 Atherosclerotic heart disease of native coronary artery without angina pectoris; J44.9 Chronic obstructive pulmonary disease, unspecified; Z79.02 Long term (current) use of antithrombotics/antiplatelets; Z79.899 Other long term (current) drug therapy; Z88.8 Allergy status to other drugs, medicaments and biological substances; Z91.018 Allergy to other foods; Z91.048 Other nonmedicinal substance allergy status; Z88.6 Allergy status to analgesic agent; Z75.8 Other problems related to medical facilities and other health care
CPT/HCPCS: 36415; 70450; 70450-26; 80053; 83735; 85025; 99283; 99284

== ENCOUNTER 2024-01-05 17:39 | Emergency (ER) | payer MEDICAID ==
[2024-01-05] MEDS: Albuterol/Ipratropium 3.0-0.5 MG/3 ML Neb Soln NEB ONE (18:03)
[2024-01-05 18:08] LABS: BASE EXCESS VENOUS 2.6 (-2.0-3.0); PH,VENOUS 7.44 (7.31-7.41)
[2024-01-05] MEDS: methylPREDNISolone Sodium Succinate 125 MG/2 ML SDV IVPUSH ONE (18:08)
[2024-01-05] MEDS: Furosemide 40 MG/4 ML VIAL IVPUSH ONE (18:08)
[2024-01-05 19:28] LABS: BASOPHILS ABSOLUTE AUTO 0.02 K/uL (0.00-0.20); BASOPHILS PERCENT AUTO 0.3 % (0.0-1.0); EOSINOPHILS ABSOLUTE AUTO 0.09 K/uL (0.00-0.45); EOSINOPHILS PERCENT AUTO 1.5 % (0.0-6.0); HEMATOCRIT 38.7 % (37.0-47.0); HEMOGLOBIN 12.6 g/dL (12.0-16.0); IMMATURE GRAN ABSOLUTE AUTO 0.01 K/uL (0.00-0.05); IMMATURE GRAN PERCENT AUTO 0.2 % (0.0-0.4); LYMPHOCYTES PERCENT AUTO 37.1 % (24.0-44.0); MEAN CORPUSCULAR HEMOGLOBIN 28.4 pg (28.0-32.0); MEAN CORPUSCULAR HGB CONC 32.6 g/dL (32.0-36.0); MEAN CORPUSCULAR VOLUME 87.4 fL (83.0-99.0); MEAN PLATELET VOLUME 10.6 fL (9.4-12.3); MONOCYTES ABSOLUTE AUTO 0.31 K/uL (0.00-0.80); MONOCYTES PERCENT AUTO 5.2 % (0.0-8.0); NEUTROPHILS PERCENT AUTO 55.7 % (41.0-71.0); PLATELET COUNT,PLT 186 K/uL (150-400); RED BLOOD CELL COUNT 4.43 M/uL (4.10-5.30); WHITE BLOOD CELL COUNT,WBC 5.93 K/uL (3.9-11.3)
[2024-01-05 19:46] LABS: A/G RATIO 0.8 (0.9-1.6); ALANINE AMINOTRANSFERASE,ALT 18 IU/L (14-63); ALBUMIN 2.8 g/dL (3.4-5.0); ALKALINE PHOSPHATASE 75 U/L (46-116); ASPARTATE AMNIOTRANSFERASE,AST 16 IU/L (15-37); BILIRUBIN TOTAL 0.4 mg/dL (0.2-1.0); BLOOD UREA NITROGEN,BUN 4 mg/dL (7.0-18.0); CARBON DIOXIDE,CO2 29.5 mmol/L (21.0-32.0); CHLORIDE,CL 105 mmol/L (98-107); CREATININE 0.8 mg/dL (0.6-1.0); GLUCOSE RANDOM 103 mg/dL (74-106); POTASSIUM,K 3.9 mmol/L (3.5-5.1); PRO B-TYPE NATRIUR PEPT,BNPPRO 123 pg/mL (0-125); PROTEIN TOTAL,TP 6.3 g/dL (6.4-8.2); SODIUM,NA 140 mmol/L (136-145)
[2024-01-05 19:55] LABS: ESTIMATED GFR 84 mL/min (>60)
[2024-01-05] MEDS: Iopamidol 755 MG/ML 500 ML Multipack Bottle IVPUSH ONE (20:16)
[2024-01-05] MEDS: Acetaminophen 500 MG Tab PO ONE (20:56)
== END 2024-01-05 22:00 | disposition home or self-care (01) ==
LOC: MW.ED 17:39
DX: J44.1 Chronic obstructive pulmonary disease with (acute) exacerbation (principal); M79.89 Other specified soft tissue disorders; I25.10 Atherosclerotic heart disease of native coronary artery without angina pectoris; Z79.899 Other long term (current) drug therapy; Z79.01 Long term (current) use of anticoagulants; Z91.048 Other nonmedicinal substance allergy status; Z88.8 Allergy status to other drugs, medicaments and biological substances; Z91.018 Allergy to other foods; Z75.8 Other problems related to medical facilities and other health care
CPT/HCPCS: 36415; 71045; 71275; 80053; 82803; 83880; 84484; 85025; 85379; 93005; 93970; 96374; 96375; 99285; A9270; J1940; J2919; Q9967; 93010; 99284; J7620-GY

== ENCOUNTER 2024-06-06 14:16 | Emergency (ER) | payer MEDICAID ==
[2024-06-06 15:39] LABS: BASOPHILS ABSOLUTE AUTO 0.05 K/uL (0.00-0.20); BASOPHILS PERCENT AUTO 0.5 % (0.0-1.0); EOSINOPHILS ABSOLUTE AUTO 0.16 K/uL (0.00-0.45); EOSINOPHILS PERCENT AUTO 1.5 % (0.0-6.0); HEMATOCRIT 37.8 % (37.0-47.0); HEMOGLOBIN 12.4 g/dL (12.0-16.0); IMMATURE GRAN ABSOLUTE AUTO 0.16 K/uL (0.00-0.05); IMMATURE GRAN PERCENT AUTO 1.5 % (0.0-0.4); LYMPHOCYTES ABSOLUTE AUTO 3.43 K/uL (1.00-4.80); LYMPHOCYTES PERCENT AUTO 32.4 % (24.0-44.0); MEAN CORPUSCULAR HEMOGLOBIN 28.6 pg (28.0-32.0); MEAN CORPUSCULAR HGB CONC 32.8 g/dL (32.0-36.0); MEAN CORPUSCULAR VOLUME 87.1 fL (83.0-99.0); MEAN PLATELET VOLUME 11.7 fL (9.4-12.3); MONOCYTES ABSOLUTE AUTO 0.61 K/uL (0.00-0.80); MONOCYTES PERCENT AUTO 5.8 % (0.0-8.0); NEUTROPHILS ABSOLUTE AUTO 6.17 K/uL (1.80-7.70); NEUTROPHILS PERCENT AUTO 58.3 % (41.0-71.0); PLATELET COUNT,PLT 170 K/uL (150-400); RED BLOOD CELL COUNT 4.34 M/uL (4.10-5.30); WHITE BLOOD CELL COUNT,WBC 10.58 K/uL (3.9-11.3)
[2024-06-06] MEDS: Albuterol/Ipratropium 3.0-0.5 MG/3 ML Neb Soln NEB STA (15:47)
[2024-06-06] MEDS: Albuterol 0.083% 2.5 MG/3 ML Neb Soln NEB STA (15:47)
[2024-06-06] MEDS: methylPREDNISolone Sodium Succinate 125 MG/2 ML SDV IVPUSH STA (15:47)
[2024-06-06] MEDS: Levofloxacin/Dextrose 5%-Water 750 MG in Premix Bag 1 BAG IV STA (15:47)
[2024-06-06 15:53] LABS: PH,VENOUS 7.41 (7.31-7.41)
[2024-06-06 16:34] LABS: LACTIC ACID 0.9 mmol/L (0.4-2.0)
[2024-06-06 17:03] LABS: INR 1.01 (0.86-1.11)
[2024-06-06 17:07] LABS: A/G RATIO 0.9 (0.9-1.6); ALBUMIN 2.9 g/dL (3.4-5.0); BILIRUBIN TOTAL 0.4 mg/dL (0.2-1.0); CARBON DIOXIDE,CO2 32.3 mmol/L (21.0-32.0); EST CRCL DRUG DOSING (CG) 48.25 mL/min; MAGNESIUM 1.8 mg/dL (1.8-2.4); POTASSIUM,K 4.2 mmol/L (3.5-5.1); PROTEIN TOTAL,TP 6.2 g/dL (6.4-8.2)
[2024-06-06] MEDS: Morphine 4 MG/ML Syringe IVPUSH STA (17:32)
[2024-06-06] MEDS: Ondansetron 4 MG/2 ML SDV IVPUSH STA (17:32)
[2024-06-06] MEDS: Iopamidol 755 MG/ML 500 ML Multipack Bottle IVPUSH STA (18:56)
== END 2024-06-06 20:06 | disposition home or self-care (01) ==
LOC: MW.ED 14:16
DX: R06.02 Shortness of breath (principal); M79.89 Other specified soft tissue disorders; R07.9 Chest pain, unspecified; I25.10 Atherosclerotic heart disease of native coronary artery without angina pectoris; I11.0 Hypertensive heart disease with heart failure; I50.9 Heart failure, unspecified; J44.9 Chronic obstructive pulmonary disease, unspecified; F17.210 Nicotine dependence, cigarettes, uncomplicated; Z90.49 Acquired absence of other specified parts of digestive tract; Z88.8 Allergy status to other drugs, medicaments and biological substances; Z91.018 Allergy to other foods; Z91.048 Other nonmedicinal substance allergy status; Z79.01 Long term (current) use of anticoagulants; Z79.52 Long term (current) use of systemic steroids; Z79.899 Other long term (current) drug therapy; Z75.8 Other problems related to medical facilities and other health care
CPT/HCPCS: 36415; 71045; 71275; 80053; 82803; 83605; 83690; 83735; 83880; 84484; 85025; 85610; 87040; 87428; 93005; 96365; 96366; 96375; 99285; J1956; J2270; J2405; J2919; Q9967; J7620-GY

== ENCOUNTER 2024-09-18 18:36 | Emergency (ER) | payer MEDICAID ==
[2024-09-18 20:03] LABS: APPEARANCE,URINE CLEAR; BILIRUBIN,URINE NEGATIVE (NEGATIVE); COLOR,URINE YELLOW; GLUCOSE,URINE NEGATIVE (NEGATIVE); KETONES,URINE NEGATIVE (NEGATIVE); LEUKOCYTE ESTERASE,URINE NEGATIVE (NEGATIVE); NITRITE,URINE NEGATIVE (NEGATIVE); OCCULT BLOOD,URINE SMALL (NEGATIVE); PH,URINE 5.5 (5.0-8.0); PROTEIN,URINE NEGATIVE (NEGATIVE); UROBILINOGEN,URINE 0.2 EU/dL (<2.0)
[2024-09-18 20:07] LABS: BASOPHILS ABSOLUTE AUTO 0.04 K/uL (0.00-0.20); BASOPHILS PERCENT AUTO 0.3 % (0.0-1.0); EOSINOPHILS PERCENT AUTO 2.6 % (0.0-6.0); HEMATOCRIT 31.6 % (37.0-47.0); HEMOGLOBIN 9.8 g/dL (12.0-16.0); IMMATURE GRAN ABSOLUTE AUTO 0.13 K/uL (0.00-0.05); IMMATURE GRAN PERCENT AUTO 1.1 % (0.0-0.4); LYMPHOCYTES ABSOLUTE AUTO 2.32 K/uL (1.00-4.80); LYMPHOCYTES PERCENT AUTO 20.2 % (24.0-44.0); MEAN CORPUSCULAR HEMOGLOBIN 27.4 pg (28.0-32.0); MEAN CORPUSCULAR VOLUME 88.3 fL (83.0-99.0); MEAN PLATELET VOLUME 10.4 fL (9.4-12.3); MONOCYTES ABSOLUTE AUTO 0.72 K/uL (0.00-0.80); MONOCYTES PERCENT AUTO 6.3 % (0.0-8.0); NEUTROPHILS ABSOLUTE AUTO 7.97 K/uL (1.80-7.70); NEUTROPHILS PERCENT AUTO 69.5 % (41.0-71.0); PLATELET COUNT,PLT 357 K/uL (150-400); RED BLOOD CELL COUNT 3.58 M/uL (4.10-5.30); WHITE BLOOD CELL COUNT,WBC 11.48 K/uL (3.9-11.3)
[2024-09-18 20:11] LABS: BACTERIA,URINE RARE (NEGATIVE); EPITHELIAL CELLS,URINE OCCASIONAL (NONE-FEW); RBC,URINE 0-2 (0-2/HPF); WBC,URINE 0-2 (0-5/HPF)
[2024-09-18 20:20] LABS: INR 1.16 (0.86-1.11)
[2024-09-18 20:42] LABS: A/G RATIO 0.9 (0.9-1.6); ALANINE AMINOTRANSFERASE,ALT 18 IU/L (14-63); ALBUMIN 3.2 g/dL (3.4-5.0); ALKALINE PHOSPHATASE 91 U/L (46-116); ASPARTATE AMNIOTRANSFERASE,AST 22 IU/L (15-37); BILIRUBIN TOTAL 0.5 mg/dL (0.2-1.0); BLOOD UREA NITROGEN,BUN 51 mg/dL (7.0-18.0); CALCIUM 8.6 mg/dL (8.5-10.1); CARBON DIOXIDE,CO2 36.8 mmol/L (21.0-32.0); CHLORIDE,CL 101 mmol/L (98-107); CREATININE 2.5 mg/dL (0.6-1.0); GLUCOSE RANDOM 96 mg/dL (74-106); POTASSIUM,K 4.1 mmol/L (3.5-5.1); PRO B-TYPE NATRIUR PEPT,BNPPRO 616 pg/mL (0-125); PROTEIN TOTAL,TP 6.9 g/dL (6.4-8.2); SODIUM,NA 143 mmol/L (136-145)
[2024-09-18 20:52] LABS: ESTIMATED GFR 21 mL/min (>60)
[2024-09-19] MEDS: Morphine 4 MG/ML Syringe IVPUSH ONE (03:19)
[2024-09-19] MEDS: Acetaminophen/HYDROcodone 325-10 MG Tab PO ONE (04:13)
[2024-09-19] MEDS: fentaNYL 50 MCG/ML SDV IVPUSH ONE (08:08)
[2024-09-19] MEDS: Sodium Chloride 0.9% 1,000 ML IV ONE (10:23)
== END 2024-09-19 13:37 ==
LOC: MW.ED 18:36
DX: N17.9 Acute kidney failure, unspecified (principal); R18.8 Other ascites; Z75.8 Other problems related to medical facilities and other health care; J44.9 Chronic obstructive pulmonary disease, unspecified; I25.10 Atherosclerotic heart disease of native coronary artery without angina pectoris; Z90.49 Acquired absence of other specified parts of digestive tract; Z79.899 Other long term (current) drug therapy; Z91.018 Allergy to other foods; Z91.048 Other nonmedicinal substance allergy status; Z88.8 Allergy status to other drugs, medicaments and biological substances
CPT/HCPCS: 36415; 71045; 71045-26; 74176; 74176-26; 80053; 81001; 83605; 83880; 84484; 85025; 85610; 87040; 87086; 93005; 93010; 96361; 96374; 96375; 99285; 99285-25; A9270-GY; J2270; J3010; J7030

== ENCOUNTER 2024-09-26 20:48 | Inpatient (IN) | payer MEDICAID ==
[2024-09-26 21:06] LABS: BASOPHILS ABSOLUTE AUTO 0.02 K/uL (0.00-0.20); BASOPHILS PERCENT AUTO 0.2 % (0.0-1.0); EOSINOPHILS ABSOLUTE AUTO 0.31 K/uL (0.00-0.45); EOSINOPHILS PERCENT AUTO 2.8 % (0.0-6.0); HEMATOCRIT 32.1 % (37.0-47.0); HEMOGLOBIN 9.7 g/dL (12.0-16.0); IMMATURE GRAN ABSOLUTE AUTO 0.06 K/uL (0.00-0.05); IMMATURE GRAN PERCENT AUTO 0.5 % (0.0-0.4); LYMPHOCYTES ABSOLUTE AUTO 2.88 K/uL (1.00-4.80); LYMPHOCYTES PERCENT AUTO 26.3 % (24.0-44.0); MEAN CORPUSCULAR HGB CONC 30.2 g/dL (32.0-36.0); MEAN CORPUSCULAR VOLUME 89.4 fL (83.0-99.0); MEAN PLATELET VOLUME 10.6 fL (9.4-12.3); MONOCYTES ABSOLUTE AUTO 0.84 K/uL (0.00-0.80); MONOCYTES PERCENT AUTO 7.7 % (0.0-8.0); NEUTROPHILS ABSOLUTE AUTO 6.85 K/uL (1.80-7.70); NEUTROPHILS PERCENT AUTO 62.5 % (41.0-71.0); PLATELET COUNT,PLT 234 K/uL (150-400); RED BLOOD CELL COUNT 3.59 M/uL (4.10-5.30); WHITE BLOOD CELL COUNT,WBC 10.96 K/uL (3.9-11.3)
[2024-09-26 21:20] LABS: INR 1.03 (0.86-1.11)
[2024-09-26 21:25] LABS: APPEARANCE,URINE CLEAR; BILIRUBIN,URINE NEGATIVE (NEGATIVE); COLOR,URINE YELLOW; GLUCOSE,URINE NEGATIVE (NEGATIVE); KETONES,URINE NEGATIVE (NEGATIVE); LEUKOCYTE ESTERASE,URINE NEGATIVE (NEGATIVE); NITRITE,URINE NEGATIVE (NEGATIVE); OCCULT BLOOD,URINE SMALL (NEGATIVE); PROTEIN,URINE NEGATIVE (NEGATIVE); UROBILINOGEN,URINE 0.2 EU/dL (<2.0)
[2024-09-26 21:32] LABS: A/G RATIO 0.8 (0.9-1.6); ACETAMINOPHEN <2.0 ug/mL; ALANINE AMINOTRANSFERASE,ALT 19 IU/L (14-63); ALBUMIN 3.2 g/dL (3.4-5.0); ALKALINE PHOSPHATASE 95 U/L (46-116); ASPARTATE AMNIOTRANSFERASE,AST 16 IU/L (15-37); BILIRUBIN TOTAL 0.4 mg/dL (0.2-1.0); BLOOD UREA NITROGEN,BUN 38 mg/dL (7.0-18.0); CALCIUM 9.5 mg/dL (8.5-10.1); CARBON DIOXIDE,CO2 35.3 mmol/L (21.0-32.0); CHLORIDE,CL 104 mmol/L (98-107); CREATINE KINASE,CK 175 U/L (26-308); CREATININE 2.1 mg/dL (0.6-1.0); EST CRCL DRUG DOSING (CG) 23.99 mL/min; ETHANOL BLOOD MEDICAL <3 mg/dL; GLUCOSE RANDOM 119 mg/dL (74-106); POTASSIUM,K 4.3 mmol/L (3.5-5.1); PROTEIN TOTAL,TP 7.1 g/dL (6.4-8.2); SALICYLATE 1.4 mg/dL (0.0-20.0); SODIUM,NA 145 mmol/L (136-145)
[2024-09-26 21:33] LABS: AMPHETAMINES SCREEN, URINE NEGATIVE (CUTOFF=500); BARBITURATE SCREEN,URINE NEGATIVE (CUTOFF=200); BENZODIAZEPINES SCREEN,URINE NEGATIVE (CUTOFF=150); BUPRENORPHINE SCREEN,URINE NEGATIVE (CUTOFF=10); METHADONE SCREEN, URINE NEGATIVE (CUTOFF=200); METHAMPHETAMINES SCREEN, URINE NEGATIVE (CUTOFF=500); OXYCODONE SCREEN,URINE NEGATIVE (CUT0FF=100); PCP SCREEN,URINE NEGATIVE (CUTOFF=25); THC SCREEN,URINE 20 NG/ML NEGATIVE (CUTOFF=50)
[2024-09-26 21:33] LABS: ESTIMATED GFR 26 mL/min (>60)
[2024-09-26 21:35] LABS: BACTERIA,URINE RARE (NEGATIVE); EPITHELIAL CELLS,URINE FEW (NONE-FEW); WBC,URINE 0-2 (0-5/HPF)
[2024-09-26] MEDS: LORazepam 2 MG/ML SDV IVPUSH ONE (21:55)
[2024-09-26 22:26] LABS: BICARBONATE,ARTERIAL 35 mEq/L (21-28); PCO2 ARTERIAL 56 mmHG (35-45); PO2 ARTERIAL 86 mmHG (83-108)
[2024-09-26 22:27] LABS: BASE EXCESS ARTERIAL 8.6 (-2.0-3.0)
[2024-09-26] MEDS: Sodium Chloride 0.9% 1,000 ML IV ONE (22:56)
[2024-09-27] MEDS: Iopamidol 755 MG/ML 500 ML Multipack Bottle IVPUSH ONE (00:11)
[2024-09-27] MEDS ORDERED: Sodium Chloride 0.9% 500 ML IV SCH (02:30)
[2024-09-27] MEDS: Sodium Chloride 0.9% 500 ML IV ONE ×2 (02:30→07:35)
[2024-09-27 09:46] LABS: BASOPHILS ABSOLUTE AUTO 0.01 K/uL (0.00-0.20); BASOPHILS PERCENT AUTO 0.2 % (0.0-1.0); EOSINOPHILS ABSOLUTE AUTO 0.31 K/uL (0.00-0.45); EOSINOPHILS PERCENT AUTO 4.7 % (0.0-6.0); HEMOGLOBIN 8.8 g/dL (12.0-16.0); IMMATURE GRAN ABSOLUTE AUTO 0.03 K/uL (0.00-0.05); IMMATURE GRAN PERCENT AUTO 0.5 % (0.0-0.4); LYMPHOCYTES ABSOLUTE AUTO 1.71 K/uL (1.00-4.80); LYMPHOCYTES PERCENT AUTO 25.7 % (24.0-44.0); MEAN CORPUSCULAR HEMOGLOBIN 27.2 pg (28.0-32.0); MEAN CORPUSCULAR HGB CONC 30.3 g/dL (32.0-36.0); MEAN CORPUSCULAR VOLUME 89.8 fL (83.0-99.0); MEAN PLATELET VOLUME 10.1 fL (9.4-12.3); MONOCYTES ABSOLUTE AUTO 0.44 K/uL (0.00-0.80); MONOCYTES PERCENT AUTO 6.6 % (0.0-8.0); NEUTROPHILS ABSOLUTE AUTO 4.15 K/uL (1.80-7.70); NEUTROPHILS PERCENT AUTO 62.3 % (41.0-71.0); PLATELET COUNT,PLT 219 K/uL (150-400); RED BLOOD CELL COUNT 3.23 M/uL (4.10-5.30); WHITE BLOOD CELL COUNT,WBC 6.65 K/uL (3.9-11.3)
[2024-09-27] MEDS: Pregabalin 50 MG Cap PO SCH (10:06)
[2024-09-27] MEDS: Morphine 15 MG Tab PO PRN (10:06)
[2024-09-27] MEDS: Baclofen 10 MG Tab PO PRN (10:07)
[2024-09-27 10:14] LABS: CALCIUM 8.7 mg/dL (8.5-10.1); CREATININE 1.8 mg/dL (0.6-1.0); EST CRCL DRUG DOSING (CG) 27.98 mL/min; POTASSIUM,K 3.9 mmol/L (3.5-5.1)
[2024-09-27] MEDS: Albuterol/Ipratropium 3.0-0.5 MG/3 ML Neb Soln NEB PRN (10:27)
[2024-09-27] MEDS ORDERED: Acetaminophen 325 MG Tab PO PRN (12:50)
[2024-09-27] MEDS: Sodium Chloride 0.9% 1,000 ML IV ONE (13:12)
[2024-09-27] MEDS: Aspirin 81 MG Tab.Chew PO SCH (13:27)
[2024-09-27] MEDS: Clopidogrel 75 MG Tab PO SCH (13:27)
[2024-09-27] MEDS: Docusate Sodium 100 MG Cap PO PRN (17:46)
[2024-09-27] MEDS: Morphine 4 MG/ML Syringe IVPUSH PRN ×2 (17:46→23:37)
[2024-09-27] MEDS: Apixaban 5 MG Tab PO SCH (19:42)
[2024-09-27] MEDS: Melatonin 3 MG Tab PO PRN (19:42)
[2024-09-27] MEDS: fentaNYL 25 MCG/HR Transdermal Patch TRDERM SCH (19:58)
[2024-09-28] MEDS: Ondansetron 4 MG/2 ML SDV IVPUSH PRN (01:30)
[2024-09-28] MEDS: Furosemide 40 MG Tab PO SCH (09:38)
[2024-09-28] MEDS: Pregabalin 200 MG Cap PO SCH (13:31)
[2024-09-29] MEDS ORDERED: 50% Dextrose in Water 50 ML Syringe IVPUSH PRN (09:27)
[2024-09-29] MEDS ORDERED: Glucagon,Human Recombinant 1 MG Vial IM PRN (09:27)
[2024-09-29] MEDS: Furosemide 40 MG/4 ML VIAL IVPUSH ONE (09:45)
[2024-09-29] MEDS: Insulin Aspart 100 Units/ML 3 ML Pen SUBCUT SCH (11:32)
[2024-09-30] MEDS: Furosemide 40 MG/4 ML VIAL IVPUSH SCH (14:14)
[2024-10-02] MEDS: Calcium Carbonate 500 MG Tab.Chew PO PRN (21:33)
== END 2024-10-04 15:12 | disposition home or self-care (01) | DRG 683 ==
LOC: MW.ED 20:48 → MW.MS 09-27 00:42 → OBSVTOIN 09-27 11:00 → MW.MS 09-27 13:53
PROVIDERS: ADMIT Internal Medicine; ATTEND Internal Medicine
DX: N17.9 Acute kidney failure, unspecified (principal); D68.51 Activated protein C resistance; F11.221 Opioid dependence with intoxication delirium; J96.11 Chronic respiratory failure with hypoxia; J96.12 Chronic respiratory failure with hypercapnia; Z68.41 Body mass index [BMI] 40.0-44.9, adult; F05 Delirium due to known physiological condition; Z51.5 Encounter for palliative care; Z66 Do not resuscitate; R53.81 Other malaise; E86.0 Dehydration; G89.4 Chronic pain syndrome; I25.10 Atherosclerotic heart disease of native coronary artery without angina pectoris; M79.7 Fibromyalgia; J44.9 Chronic obstructive pulmonary disease, unspecified; M19.90 Unspecified osteoarthritis, unspecified site; M54.9 Dorsalgia, unspecified; M06.9 Rheumatoid arthritis, unspecified; F41.9 Anxiety disorder, unspecified; M32.9 Systemic lupus erythematosus, unspecified; R25.1 Tremor, unspecified; I50.9 Heart failure, unspecified; F32.A Depression, unspecified; F17.200 Nicotine dependence, unspecified, uncomplicated; Z74.1 Need for assistance with personal care; E66.01 Morbid (severe) obesity due to excess calories; D50.9 Iron deficiency anemia, unspecified; Z79.01 Long term (current) use of anticoagulants; Z85.41 Personal history of malignant neoplasm of cervix uteri; Z90.49 Acquired absence of other specified parts of digestive tract; Z79.899 Other long term (current) drug therapy; Z86.718 Personal history of other venous thrombosis and embolism; Z86.711 Personal history of pulmonary embolism; Z98.890 Other specified postprocedural states; Z98.51 Tubal ligation status; Z90.2 Acquired absence of lung [part of]; Z91.048 Other nonmedicinal substance allergy status; Z88.5 Allergy status to narcotic agent; Z88.8 Allergy status to other drugs, medicaments and biological substances; Z88.2 Allergy status to sulfonamides; Z91.018 Allergy to other foods; Z99.81 Dependence on supplemental oxygen; Z95.828 Presence of other vascular implants and grafts
CPT/HCPCS: 36415 ×2; 36600; 70450; 71045; 74177; 80048; 80053; 80143; 80179; 80305; 80307; 81001; 82140; 82550; 82803; 82947; 83605; 85025 ×2; 85610; 93005; 94640; A9270 ×3; J2060; J7030 ×3; J7620; Q9967; 93010; 99285; J1815-GY; J1938; J2270; J2405

== ENCOUNTER 2024-10-07 22:03 | Inpatient (IN) | payer MEDICAID ==
[2024-10-07] MEDS ORDERED: droPERidol 2.5 MG/ML SDV IVPUSH ONE (22:26)
[2024-10-07] MEDS ORDERED: droPERidol 2.5 MG/ML SDV IVPUSH PRN (22:29)
[2024-10-07 22:35] LABS: BASOPHILS ABSOLUTE AUTO 0.01 K/uL (0.00-0.20); BASOPHILS PERCENT AUTO 0.1 % (0.0-1.0); EOSINOPHILS PERCENT AUTO 2.7 % (0.0-6.0); HEMATOCRIT 29.9 % (37.0-47.0); HEMOGLOBIN 9.2 g/dL (12.0-16.0); IMMATURE GRAN ABSOLUTE AUTO 0.02 K/uL (0.00-0.05); IMMATURE GRAN PERCENT AUTO 0.3 % (0.0-0.4); LYMPHOCYTES PERCENT AUTO 28.1 % (24.0-44.0); MEAN CORPUSCULAR HEMOGLOBIN 27.3 pg (28.0-32.0); MEAN CORPUSCULAR HGB CONC 30.8 g/dL (32.0-36.0); MEAN CORPUSCULAR VOLUME 88.7 fL (83.0-99.0); MEAN PLATELET VOLUME 11.3 fL (9.4-12.3); MONOCYTES ABSOLUTE AUTO 0.49 K/uL (0.00-0.80); MONOCYTES PERCENT AUTO 6.6 % (0.0-8.0); NEUTROPHILS ABSOLUTE AUTO 4.66 K/uL (1.80-7.70); NEUTROPHILS PERCENT AUTO 62.2 % (41.0-71.0); PLATELET COUNT,PLT 154 K/uL (150-400); RED BLOOD CELL COUNT 3.37 M/uL (4.10-5.30); WHITE BLOOD CELL COUNT,WBC 7.48 K/uL (3.9-11.3)
[2024-10-07 22:40] LABS: BASE EXCESS VENOUS 11.7 (-2.0-3.0); PH,VENOUS 7.4 (7.32-7.43)
[2024-10-07 23:07] LABS: APPEARANCE,URINE CLEAR; BILIRUBIN,URINE NEGATIVE (NEGATIVE); COLOR,URINE YELLOW; GLUCOSE,URINE NEGATIVE (NEGATIVE); KETONES,URINE NEGATIVE (NEGATIVE); LEUKOCYTE ESTERASE,URINE NEGATIVE (NEGATIVE); NITRITE,URINE NEGATIVE (NEGATIVE); OCCULT BLOOD,URINE TRACE-INTACT (NEGATIVE); PROTEIN,URINE NEGATIVE (NEGATIVE); UROBILINOGEN,URINE 0.2 EU/dL (<2.0)
[2024-10-07 23:13] LABS: A/G RATIO 0.8 (0.9-1.6); ACETAMINOPHEN <2.0 ug/mL; ALANINE AMINOTRANSFERASE,ALT 12 IU/L (14-63); ALBUMIN 3.1 g/dL (3.4-5.0); ALKALINE PHOSPHATASE 92 U/L (46-116); ASPARTATE AMNIOTRANSFERASE,AST 13 IU/L (15-37); BILIRUBIN TOTAL 0.3 mg/dL (0.2-1.0); BLOOD UREA NITROGEN,BUN 27 mg/dL (7.0-18.0); CARBON DIOXIDE,CO2 37.9 mmol/L (21.0-32.0); CHLORIDE,CL 98 mmol/L (98-107); CREATININE 1.8 mg/dL (0.6-1.0); EST CRCL DRUG DOSING (CG) 29.16 mL/min; ETHANOL BLOOD MEDICAL <3 mg/dL; GLUCOSE RANDOM 109 mg/dL (74-106); LIPASE 27 U/L (16-77); MAGNESIUM 1.9 mg/dL (1.8-2.4); POTASSIUM,K 3.3 mmol/L (3.5-5.1); PRO B-TYPE NATRIUR PEPT,BNPPRO 735 pg/mL (0-125); PROTEIN TOTAL,TP 6.8 g/dL (6.4-8.2); SODIUM,NA 142 mmol/L (136-145)
[2024-10-07 23:14] LABS: ESTIMATED GFR 31 mL/min (>60)
[2024-10-07 23:17] LABS: AMPHETAMINES SCREEN, URINE NEGATIVE (CUTOFF=500); BARBITURATE SCREEN,URINE NEGATIVE (CUTOFF=200); BENZODIAZEPINES SCREEN,URINE NEGATIVE (CUTOFF=150); BUPRENORPHINE SCREEN,URINE NEGATIVE (CUTOFF=10); METHADONE SCREEN, URINE NEGATIVE (CUTOFF=200); METHAMPHETAMINES SCREEN, URINE NEGATIVE (CUTOFF=500); OXYCODONE SCREEN,URINE NEGATIVE (CUT0FF=100); PCP SCREEN,URINE NEGATIVE (CUTOFF=25); THC SCREEN,URINE 20 NG/ML NEGATIVE (CUTOFF=50)
[2024-10-07] MEDS: Sodium Chloride 0.9% 500 ML IV ONE (23:22)
[2024-10-07 23:23] LABS: BACTERIA,URINE RARE (NEGATIVE); EPITHELIAL CELLS,URINE OCCASIONAL (NONE-FEW); RBC,URINE 0-2 (0-2/HPF); WBC,URINE 0-5 (0-5/HPF)
[2024-10-08] MEDS: Iopamidol 612 MG/ML 100 ML Bottle IVPUSH ONE (00:37)
[2024-10-08] MEDS ORDERED: Furosemide 40 MG/4 ML VIAL IVPUSH ONE (01:01)
[2024-10-08] MEDS: Albuterol/Ipratropium 3.0-0.5 MG/3 ML Neb Soln NEB ONE (01:19)
[2024-10-08] MEDS ORDERED: Naloxone 0.4 MG/ML SDV IVPUSH ONE (01:38)
[2024-10-08] MEDS ORDERED: Naloxone 0.4 MG/ML SDV IVPUSH PRN (07:11)
[2024-10-08] MEDS: Morphine 15 MG Tab PO PRN (08:49)
[2024-10-08] MEDS: Pregabalin 200 MG Cap PO SCH (08:51)
[2024-10-08] MEDS: Morphine 4 MG/ML Syringe IVPUSH ONE (09:06)
[2024-10-08] MEDS: fentaNYL 12 MCG/HR Transdermal Patch TRDERM SCH (09:53)
[2024-10-08] MEDS ORDERED: Albuterol 0.083% 2.5 MG/3 ML Neb Soln NEB PRN (10:17)
[2024-10-08] MEDS ORDERED: Sodium Chloride 0.9% 2.5 ML Syringe FLUSH PRN (10:19)
[2024-10-08] MEDS ORDERED: Sodium Chloride 0.9% 10 ML Syringe FLUSH PRN (10:19)
[2024-10-08] MEDS: Furosemide 40 MG/4 ML VIAL IVPUSH ONE (11:17)
[2024-10-08] MEDS: Docusate Sodium 100 MG Cap PO PRN (11:18)
[2024-10-08] MEDS: Baclofen 10 MG Tab PO PRN (11:19)
[2024-10-08] MEDS: Pantoprazole 40 MG Tab.CR PO SCH (11:19)
[2024-10-08] MEDS: Hydroxychloroquine 200 MG Tablet PO SCH (12:45)
[2024-10-08] MEDS: Morphine 4 MG/ML Syringe IVPUSH PRN (15:42)
[2024-10-08] MEDS: Montelukast 10 MG Tab PO SCH (20:10)
[2024-10-08] MEDS: Apixaban 5 MG Tab PO SCH (20:10)
[2024-10-09 06:10] LABS: BASOPHILS ABSOLUTE AUTO 0.02 K/uL (0.00-0.20); BASOPHILS PERCENT AUTO 0.4 % (0.0-1.0); EOSINOPHILS ABSOLUTE AUTO 0.29 K/uL (0.00-0.45); EOSINOPHILS PERCENT AUTO 5.2 % (0.0-6.0); HEMATOCRIT 29.7 % (37.0-47.0); HEMOGLOBIN 8.9 g/dL (12.0-16.0); IMMATURE GRAN ABSOLUTE AUTO 0.02 K/uL (0.00-0.05); IMMATURE GRAN PERCENT AUTO 0.4 % (0.0-0.4); LYMPHOCYTES ABSOLUTE AUTO 1.77 K/uL (1.00-4.80); MEAN CORPUSCULAR HEMOGLOBIN 26.7 pg (28.0-32.0); MEAN CORPUSCULAR VOLUME 89.2 fL (83.0-99.0); MEAN PLATELET VOLUME 11.2 fL (9.4-12.3); MONOCYTES ABSOLUTE AUTO 0.42 K/uL (0.00-0.80); MONOCYTES PERCENT AUTO 7.6 % (0.0-8.0); NEUTROPHILS ABSOLUTE AUTO 3.01 K/uL (1.80-7.70); NEUTROPHILS PERCENT AUTO 54.4 % (41.0-71.0); PLATELET COUNT,PLT 154 K/uL (150-400); RED BLOOD CELL COUNT 3.33 M/uL (4.10-5.30); WHITE BLOOD CELL COUNT,WBC 5.53 K/uL (3.9-11.3)
[2024-10-09 06:27] LABS: CALCIUM 8.7 mg/dL (8.5-10.1); CARBON DIOXIDE,CO2 35.4 mmol/L (21.0-32.0); CREATININE 1.6 mg/dL (0.6-1.0); EST CRCL DRUG DOSING (CG) 32.8 mL/min; POTASSIUM,K 3.7 mmol/L (3.5-5.1)
[2024-10-09] MEDS: Clopidogrel 75 MG Tab PO SCH (10:22)
[2024-10-09] MEDS: Metoprolol Tartrate 50 MG Tab PO SCH (10:24)
== END 2024-10-09 11:20 | disposition home or self-care (01) | DRG 896 ==
LOC: MW.ED 22:03 → MW.MS 10-08 01:38
PROVIDERS: ADMIT Internal Medicine; ATTEND Internal Medicine
DX: F11.229 Opioid dependence with intoxication, unspecified (principal); I50.33 Acute on chronic diastolic (congestive) heart failure; R79.89 Other specified abnormal findings of blood chemistry; J96.11 Chronic respiratory failure with hypoxia; J96.12 Chronic respiratory failure with hypercapnia; D68.61 Antiphospholipid syndrome; Z66 Do not resuscitate; Z51.5 Encounter for palliative care; R41.82 Altered mental status, unspecified; I25.10 Atherosclerotic heart disease of native coronary artery without angina pectoris; J44.9 Chronic obstructive pulmonary disease, unspecified; M19.90 Unspecified osteoarthritis, unspecified site; M54.9 Dorsalgia, unspecified; G89.29 Other chronic pain; M79.7 Fibromyalgia; M06.9 Rheumatoid arthritis, unspecified; F41.9 Anxiety disorder, unspecified; F32.A Depression, unspecified; Z91.048 Other nonmedicinal substance allergy status; Z88.5 Allergy status to narcotic agent; Z91.018 Allergy to other foods; Z88.8 Allergy status to other drugs, medicaments and biological substances; Z88.2 Allergy status to sulfonamides; Z79.899 Other long term (current) drug therapy; Z79.01 Long term (current) use of anticoagulants; Z79.02 Long term (current) use of antithrombotics/antiplatelets; Z79.82 Long term (current) use of aspirin; Z79.52 Long term (current) use of systemic steroids; Z86.718 Personal history of other venous thrombosis and embolism; Z86.711 Personal history of pulmonary embolism; M32.9 Systemic lupus erythematosus, unspecified; Z85.41 Personal history of malignant neoplasm of cervix uteri; Z90.2 Acquired absence of lung [part of]; Z90.49 Acquired absence of other specified parts of digestive tract; Z98.890 Other specified postprocedural states; Z98.51 Tubal ligation status; R91.1 Solitary pulmonary nodule; N18.9 Chronic kidney disease, unspecified; Z99.81 Dependence on supplemental oxygen
CPT/HCPCS: 36415 ×2; 70450; 71250; 74176; 80053; 80143; 80179; 80305; 80307; 81001; 82803; 83605 ×2; 83690; 83735; 83880; 84484; 85025; 93005; 99285; J7620; Q9967; 71260; 74177; 80048; 93010; A9270-GY; J1938; J2270; J7030

== ENCOUNTER 2024-11-12 21:07 | Emergency (ER) | payer MEDICAID ==
[2024-11-12] MEDS: Sodium Chloride 0.9% 10 ML Syringe FLUSH PRN (21:21)
[2024-11-12] MEDS: Naloxone 0.4 MG/ML SDV IVPUSH ONE ×3 (21:22→21:39)
[2024-11-12] MEDS: Sodium Chloride 0.9% 2.5 ML Syringe FLUSH PRN (21:22)
[2024-11-12 21:47] LABS: BASOPHILS ABSOLUTE AUTO 0.02 K/uL (0.00-0.20); BASOPHILS PERCENT AUTO 0.3 % (0.0-1.0); EOSINOPHILS ABSOLUTE AUTO 0.22 K/uL (0.00-0.45); EOSINOPHILS PERCENT AUTO 3.1 % (0.0-6.0); IMMATURE GRAN ABSOLUTE AUTO 0.02 K/uL (0.00-0.05); IMMATURE GRAN PERCENT AUTO 0.3 % (0.0-0.4); LYMPHOCYTES ABSOLUTE AUTO 2.12 K/uL (1.00-4.80); LYMPHOCYTES PERCENT AUTO 30.0 % (24.0-44.0); MEAN PLATELET VOLUME 11.0 fL (9.4-12.3); MONOCYTES ABSOLUTE AUTO 0.49 K/uL (0.00-0.80); MONOCYTES PERCENT AUTO 6.9 % (0.0-8.0); NEUTROPHILS ABSOLUTE AUTO 4.19 K/uL (1.80-7.70); NEUTROPHILS PERCENT AUTO 59.4 % (41.0-71.0); NRBC ABSOLUTE 0.00 K/uL (0.00-0.02); NRBC PERCENT 0.0 /100WBC (0.0-0.2); PLATELET COUNT,PLT 170 K/uL (150-400); RED BLOOD CELL COUNT 3.53 M/uL (4.10-5.30); WHITE BLOOD CELL COUNT,WBC 7.06 K/uL (3.9-11.3)
[2024-11-12 21:53] LABS: APPEARANCE,URINE CLEAR; GLUCOSE,URINE NEGATIVE (NEGATIVE); OCCULT BLOOD,URINE NEGATIVE (NEGATIVE)
[2024-11-12 22:02] LABS: AMPHETAMINES SCREEN, URINE NEGATIVE (CUTOFF=500); BUPRENORPHINE SCREEN,URINE NEGATIVE (CUTOFF=10); METHADONE SCREEN, URINE NEGATIVE (CUTOFF=200); METHAMPHETAMINES SCREEN, URINE NEGATIVE (CUTOFF=500); OXYCODONE SCREEN,URINE PRESUMPTIVE POSITIVE (CUT0FF=100); PCP SCREEN,URINE NEGATIVE (CUTOFF=25); THC SCREEN,URINE 20 NG/ML PRESUMPTIVE POSITIVE (CUTOFF=50)
[2024-11-12 22:13] LABS: A/G RATIO 0.9 (0.9-1.6); ALANINE AMINOTRANSFERASE,ALT 24 IU/L (14-63); ASPARTATE AMNIOTRANSFERASE,AST 17 IU/L (15-37); BILIRUBIN TOTAL 0.2 mg/dL (0.2-1.0); BLOOD UREA NITROGEN,BUN 35 mg/dL (7.0-18.0); CARBON DIOXIDE,CO2 31.9 mmol/L (21.0-32.0); CHLORIDE,CL 106 mmol/L (98-107); CREATININE 2.0 mg/dL (0.6-1.0); EST CRCL DRUG DOSING (CG) 26.24 mL/min; ESTIMATED GFR 28 mL/min (>60); ETHANOL BLOOD MEDICAL <3 mg/dL; GLUCOSE RANDOM 123 mg/dL (74-106); POTASSIUM,K 3.6 mmol/L (3.5-5.1); PROTEIN TOTAL,TP 6.8 g/dL (6.4-8.2); SODIUM,NA 144 mmol/L (136-145)
== END 2024-11-12 23:08 | disposition home or self-care (01) ==
LOC: MW.ED 21:07
DX: T40.601A Poisoning by unspecified narcotics, accidental (unintentional), initial encounter (principal); M19.90 Unspecified osteoarthritis, unspecified site; Z79.899 Other long term (current) drug therapy; Z88.8 Allergy status to other drugs, medicaments and biological substances; Z91.048 Other nonmedicinal substance allergy status; Z90.49 Acquired absence of other specified parts of digestive tract
CPT/HCPCS: 36415; 71045; 80053; 80305; 80307; 81003; 83735; 85025; 96374; 99285; J2312; 99283

== ENCOUNTER 2025-01-02 12:09 | Emergency (ER) | payer MEDICAID ==
[2025-01-02] MEDS ORDERED: Sodium Chloride 0.9% 10 ML Syringe FLUSH PRN (12:48)
[2025-01-02] MEDS ORDERED: Sodium Chloride 0.9% 2.5 ML Syringe FLUSH PRN (12:48)
[2025-01-02 12:49] LABS: GLUCOSE,URINE NEGATIVE (NEGATIVE); OCCULT BLOOD,URINE NEGATIVE (NEGATIVE)
[2025-01-02 12:50] LABS: APPEARANCE,URINE HAZY
[2025-01-02 12:56] LABS: EPITHELIAL CELLS,URINE FEW (NONE-FEW)
[2025-01-02 13:38] LABS: BASOPHILS ABSOLUTE AUTO 0.02 K/uL (0.00-0.20); BASOPHILS PERCENT AUTO 0.3 % (0.0-1.0); EOSINOPHILS ABSOLUTE AUTO 0.22 K/uL (0.00-0.45); EOSINOPHILS PERCENT AUTO 3.5 % (0.0-6.0); IMMATURE GRAN ABSOLUTE AUTO 0.03 K/uL (0.00-0.05); IMMATURE GRAN PERCENT AUTO 0.5 % (0.0-0.4); LYMPHOCYTES ABSOLUTE AUTO 1.50 K/uL (1.00-4.80); LYMPHOCYTES PERCENT AUTO 23.8 % (24.0-44.0); MEAN PLATELET VOLUME 10.5 fL (9.4-12.3); MONOCYTES ABSOLUTE AUTO 0.45 K/uL (0.00-0.80); MONOCYTES PERCENT AUTO 7.1 % (0.0-8.0); NEUTROPHILS ABSOLUTE AUTO 4.08 K/uL (1.80-7.70); NEUTROPHILS PERCENT AUTO 64.8 % (41.0-71.0); NRBC ABSOLUTE 0.00 K/uL (0.00-0.02); NRBC PERCENT 0.0 /100WBC (0.0-0.2); PLATELET COUNT,PLT 172 K/uL (150-400); RED BLOOD CELL COUNT 3.59 M/uL (4.10-5.30); WHITE BLOOD CELL COUNT,WBC 6.30 K/uL (3.9-11.3)
[2025-01-02 14:14] LABS: A/G RATIO 0.8 (0.9-1.6); ALANINE AMINOTRANSFERASE,ALT 22.0 IU/L (14-63); ASPARTATE AMNIOTRANSFERASE,AST 21.0 IU/L (15-37); BILIRUBIN TOTAL 0.2 mg/dL (0.2-1.0); BLOOD UREA NITROGEN,BUN 18.0 mg/dL (7.0-18.0); CARBON DIOXIDE,CO2 31.2 mmol/L (21.0-32.0); CHLORIDE,CL 102.0 mmol/L (98-107); CREATININE 1.6 mg/dL (0.6-1.0); EST CRCL DRUG DOSING (CG) 30.16 mL/min; GLUCOSE RANDOM 129.0 mg/dL (74-106); POTASSIUM,K 4.1 mmol/L (3.5-5.1); PRO B-TYPE NATRIUR PEPT,BNPPRO 83.0 pg/mL (0-125); PROTEIN TOTAL,TP 6.6 g/dL (6.4-8.2); SODIUM,NA 142.0 mmol/L (136-145)
[2025-01-02 14:16] LABS: ESTIMATED GFR 36.0 mL/min (>60)
== END 2025-01-02 15:02 | disposition home or self-care (01) ==
LOC: MW.ED 12:09
DX: R60.0 Localized edema (principal); I25.10 Atherosclerotic heart disease of native coronary artery without angina pectoris; J44.9 Chronic obstructive pulmonary disease, unspecified; Z90.49 Acquired absence of other specified parts of digestive tract; Z88.8 Allergy status to other drugs, medicaments and biological substances; Z91.018 Allergy to other foods; Z91.048 Other nonmedicinal substance allergy status; Z79.51 Long term (current) use of inhaled steroids; Z79.82 Long term (current) use of aspirin; Z79.899 Other long term (current) drug therapy; Z75.3 Unavailability and inaccessibility of health-care facilities
CPT/HCPCS: 36415; 71045; 71045-26; 80053; 81001; 83735; 83880; 85025; 99283